=== PATIENT | male | born 1960 | race Caucasian/White ===

== ENCOUNTER 2018-07-31 10:04 | Inpatient (IN) | payer MEDICARE, OTHER ==
[2018-07-31] MEDS ORDERED: Succinylcholine Chloride 20 MG/ML 10 ml SYRINGE FS ONE (10:24)
[2018-07-31] MEDS ORDERED: Propofol 1,000 MG/100 ML VIAL IV ONE (10:24)
[2018-07-31] MEDS ORDERED: Ketamine 50 MG/ML (10ML VIAL) ONE (10:26)
[2018-07-31 10:34] LABS: Bilirubin Negative (Negative); Blood, Urine Moderate (Negative); Clarity CLOUDY (Clear); Glucose, Urine (Dipstick) 100 mg/dL (Negative); Leukocyte Negative (Negative); Nitrite Negative (Negative); Protein, Urine (Dipstick) 300 mg/dL (Neg-Trace); Specific Gravity, Urine 1.011 (1.002-1.036)
[2018-07-31 10:37] LABS: Bacteria/HPF Rare-Few HPF (None Seen); Squamous Epithelial 0-3 HPF (0-3)
[2018-07-31 10:39] LABS: Pathc Cast-AUWi Flag 5.03 (0-2.49)
[2018-07-31 10:40] LABS: ALT (SGPT) 40 U/L (8-55); AST (SGOT) 65 U/L (5-34); Alkaline Phosphatase 81 U/L (40-150); Anion Gap 20 mmol/L (10-20); BUN (Urea Nitrogen) 5 mg/dL (8.4-25.7); Calc. Creatinine Clearance 0 mL/min (70-130); Calcium 8.3 mg/dL (7.8-10.44); Carbon Dioxide 16 mmol/L (22-29); Chloride 110 mmol/L (98-107); Estimated GFR-MDRD 78; Globulin 3.3 g/dL (2.4-3.5); Glucose 149 mg/dL (70-105); Potassium 4.7 mmol/L (3.5-5.1); Protein, Total 6.3 g/dL (6.0-8.3); Sodium 141 mmol/L (136-145)
[2018-07-31 10:43] LABS: #Eosinphils 0.1 thou/uL (0.0-0.7); #Lymphocytes 1.3 thou/uL (1.20-3.40); #Monocytes 0.2 thou/uL (0.11-0.59); #Neutrophils 3.5 thou/uL (1.40-6.50); %Eosinophils 1.1 % (0.0-10.0); %Lymphocytes 24.9 % (21.0-51.0); %Monocytes 4.3 % (0.0-10.0); %Neutrophils 69.6 % (42.0-75.0); Hemoglobin 14.1 g/dL (14.0-18.0); Mean Corpuscular HGB CONC 33.2 g/dL (32.0-36.0); Mean Corpuscular Volume 99.5 fL (78.0-98.0); Mean Platelet Volume 8.3 fL (7.4-10.4); Platelet Count 76 thou/uL (130-400); Platelet Morphology Comment Appears Decreased; RBC Distribution Width 14.4 % (11.5-14.5); Red Blood Cell (RBC) Count 4.26 mill/uL (4.70-6.10)
[2018-07-31 10:47] LABS: Hyaline Casts/LPF NONE SEEN LPF (0-3 Hyaline); Other Casts/LPF None Seen LPF (0-3 Hyaline)
[2018-07-31 10:48] LABS: Sperm/HPF 4+ HPF (None Seen)
[2018-07-31 10:49] LABS: Crystals/HPF 1+ AMORPH PHOS HPF (Negative)
[2018-07-31] MEDS ORDERED: Norepinephrine 4 MG/4 ML VIAL ONE (10:50)
[2018-07-31 10:59] LABS: INR-International Normal Ratio 1.5; PTT 35.7 SEC (22.9-36.1); Prothrombin Time 18.6 SEC (12.0-14.7)
[2018-07-31] MEDS ORDERED: Atropine Sulfate 1 mg/10 ml Syringe ONE (11:00)
[2018-07-31] MEDS ORDERED: EPINEPHrine 1 MG/10 ML Abboject SYRINGE ONE (11:00)
[2018-07-31 11:04] LABS: Magnesium 1.8 mg/dL (1.6-2.6)
--- NOTE | 2018-07-31 11:04 | RAD ---
FRONTAL VIEW CHEST: COMPARISON: Earlier same day. CLINICAL HISTORY: Altered mental status. FINDINGS: There is persistent enlargement of cardiomediastinal silhouette. Elevation of right hemidiaphragm wit h adjacent right basilar density. Interval placement of endotracheal tube with tip at the inferior aspect of thoracic inlet. An adjacent traversing catheter is partially visualized, and terminates jus t below the thoracic inlet. Correlate clinically. Left IJ catheter remains. IMPRESSION: 1. Evidence of decompensated congestive heart failure with edema. Right basilar density adjacent chapito vated right hemidiaphragm is present. 2. Interval placement of endotracheal tube. There is an adjacent catheter terminating at a similar l evel, incompletely visualized on the basis of this exam. Correlate with recent tube placement, repositioning and follow-up imaging as necessary. Transcribed Date/Time: 07/31/2018 11:13 AM
--- NOTE | 2018-07-31 11:12 | RAD ---
FRONTAL VIEW CHEST: COMPARISON: No prior comparisons. INDICATION: Emergency exam, altered mental status, difficulty breathing. FINDINGS: Marked enlargement of the cardiac mediastinal silhouette. Elevation right hemidiaphragm is present. T here is a left IJ catheter with tip traversing to the SVC region. Evidence of bilateral interstitial edema. IMPRESSION: Fluid overload. Transcribed Date/Time: 07/31/2018 11:14 AM
--- NOTE | 2018-07-31 11:17 | PDOC.FPRHP ---
- History of Present Illness Chief Complaint: unresponsive s/p bee sting History of Present Illness: The patient is a 58YOM with a PMH significant for COPD and heavy EtOH and tobacco use who was flown in via EMS after reportedly becoming unresponsive following a bee sting earlier today. Per the family, the patient was reportedly stung by a bee between [id number] today. Over the course of the morning he began complaining of having more difficulty breathing and the family, remembering him having an adverse reaction to a bee sting ~30 years ago, proceeded to drive him to the nearest hospital. However, en route to a nearby hospital, the family reported that the patient became unresponsive and they immediately called EMS. Per the ERMD, the patient was found unresponsive with no pulse on the scene. Per the family ~7 minutes passed between the time of the patient's unresponsiveness and EMS's arrival. ROSC was achieved on the scene after 1 dose of Epi and the patient was then flown to the [facility] ER for further management. The patient reportedly coded again en route to [facility] and ROSC was achieved again after 1 dose of epi. The patient was also intubated en route but was noted to be significantly hypotensive in the 60/30 range on presentation and was therefore started on an epinephrine drip via a left IJ that was placed by the ERMD. He also reportedly became bradycardic into the 30s but responded to 1 dose of atropine and maintained a normal pulse since. He was subsequently transferred to the CCU for further management and close monitoring. ED Course: See HPI. - Allergies/Adverse Reactions Allergies Allergy/AdvReac Type Severity Reaction Status Date / Time Penicillins Allergy Severe Anaphylaxis Verified 07/31/18 12:28 - History PMHx: h/o TIAs following cervical spine surgery 2-3 years ago per family & COPD PSHx: cervical spine surgery FHx: Breast CA- mom & sisters Social: No drug use but reportedly drinks at least a 12 pack per day for 26+ years and has smoked 1ppd x 50 years. - Review of Systems ROS unobtainable: due to endotracheal tube - Vital signs BP: [129/89] HR: [89] RR: [83] Tmax: [98.1] Pox: [93]% on [Ventilator] Wt: 105 kg - Physical Exam Constitutional: other (intubated & sedated with periodic spontaneous movements) HEENT: normocephalic and atraumatic, other (pupils fixed & dilated) Heart: RRR, normal S1/S2 Lungs: good air movement, no wheezing, no retractions, other (coarse rhonchi on inspiration and expiration noted throughout) Abdomen: soft, no masses/distention Musculoskeletal: normal structure -Neurological: pupils fixed & dilated & unable to assess for focal deficits or 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 -Skin: open, non-infected appearing ulceration to LLE with chornic venous stasis changes in B/L LEs & trace pitting edema in ankles Heme/Lymphatic: no purpura, no petechia FMR H&P: Results - Labs Result Diagrams: 07/31/18 10:09 07/31/18 10:09 Lab results: WBC 5.0 thou/uL (4.8-10.8) 07/31/18 10:09 Hgb 14.1 g/dL (14.0-18.0) 07/31/18 10:09 Hct 42.3 % (42.0-52.0) 07/31/18 10:09 MCV 99.5 fL (78.0-98.0) H 07/31/18 10:09 Plt Count 76 thou/uL (130-400) L 07/31/18 10:09 Neutrophils % 69.6 % (42.0-75.0) 07/31/18 10:09 Sodium 141 mmol/L (136-145) 07/31/18 10:09 Potassium 4.7 mmol/L (3.5-5.1) 07/31/18 10:09 Chloride 110 mmol/L (98-107) H 07/31/18 10:09 Carbon Dioxide 16 mmol/L (22-29) L 07/31/18 10:09 BUN 5 mg/dL (8.4-25.7) L 07/31/18 10:09 Creatinine 0.99 mg/dL (0.7-1.3) 07/31/18 10:09 Glucose 149 mg/dL (70-105) H 07/31/18 10:09 Calcium 8.3 mg/dL (7.8-10.44) 07/31/18 10:09 Total Bilirubin 1.0 mg/dL (0.2-1.2) 07/31/18 10:09 AST 65 U/L (5-34) H 07/31/18 10:09 ALT 40 U/L (8-55) 07/31/18 10:09 Alkaline Phosphatase 81 U/L (40-150) 07/31/18 10:09 Creatine Kinase 166 U/L (30-200) 07/31/18 10:09 Serum Total Protein 6.3 g/dL (6.0-8.3) 07/31/18 10:09 Albumin 3.0 g/dL (3.5-5.0) L 07/31/18 10:09 Urine Ketones Negative mg/dL (Negative) 07/31/18 10:14 Urine Blood Moderate (Negative) H 07/31/18 10:14 Urine Nitrite Negative (Negative) 07/31/18 10:14 Ur Leukocyte Esterase Negative (Negative) 07/31/18 10:14 Urine RBC 7-10 HPF (0-3) H 07/31/18 10:14 Urine WBC 7-10 HPF (0-3) H 07/31/18 10:14 Ur Squamous Epith Cells 0-3 HPF (0-3) 07/31/18 10:14 Urine Bacteria Rare-Few HPF (None Seen) 07/31/18 10:14 - EKG Interpretation EKG: NSR - Radiology Interpretation Chest x-ray Status: image reviewed by me, report reviewed by me (07/31/18: Fluid Overload. Evidence of decompensated CHF w/ edema. R. basilar density adjacent elevated R. 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 Became extremely hypotensive and therefore had a left IJ placed and was receiving pressure support via an epi drip @ 30mcg/min in the ED on exam. Was also sedated with propofol. - Will continue epi drip for pressure support & wean as tolerated by the patient & pulm/CC recs. - Will avoid IVFs for now due to concern for fluid overload seen on CXR. Will order a BNP and TTE to evaluate for any underlying CHF. - Will start on IV steroids & H1 and H2 blockers for adjunct therapy. - Will continue ventilatory support per pulm/CC recs; however, prognosis remains guarded due to concerning neuro findings on exam including fixed pupils. CT head also pending to r/o any acute IC abnormality which could also explain these findings. - Will continue to monitor vitals closely. Acute hypoxic hypercapnic respiratory failure 2/2 flash pulmonary edema from anaphylactic shock - Patient intubated and sedated on exam. Satting 91% on 100% O2 on SIMV mode set at a RR of 14. - ABG s/p intubation in ER significant for severe respiratory acidosis with a pH of 7.15 and a PCO2 of 62. CXR also noted edema & an elevated R hemidiaphragm - Will continue ventilatory support and management per pulm/CC recs who were consulted from the ED. Appreciate recs. Lactic acidosis 2/2 anaphylactic shock - Lactate 6.1 on presentation likely 2/2 severe hypotension in setting of anaphylactic shock. - Will continue to trend. COPD - Reported by family. - Will have albuterol PRN ordered for wheezing and SOB. h/o TIAs/CVA - Reported h/o multiple TIAs/ministrokes per family following an operation 2-3 years ago. - May need to call pharmacy to reconcile medications if list unable to be found from ER paperwork. Will resume meds once confirmed. chronic venous stasis w/ LLE ulceration - Aware, WC consulted to evaluate & treat. tobacco use - Aware. EtOH use - Aware. Dispo: Will admit to CCU for close monitoring with ventilatory and pressure support PRN. Estimated LOS > 2 midnights pending clinical course. Prognosis remains guarded. DVT PPx: lovenox GI PPx: famotidine IVFs: SL Abx: none CODE STATUS: FULL CODE FMR H&P: Upper Level - Pertinent history I was present with the manager of international during the history taking. We were not able to obtain history from patient due to intubation. We obtained hx from pts girlfriend and sister. They were with the patient when he was stung by a bee. They knew he has had allergic reaction before. They then called EMS. They state he was down for about 7 minutes before EMS arrived. EMS performed CPR gave 4 EPI BICARB. Pt arrested multiple times in route per them. - Pertinent findings I was present with the manager of international during the physical exam. We agreed on findings we both found. Significant pt had decorticate posturing. Pt was gaging on the ET tube. Pt pupils were fixed and mildly dilated. Pt extremeties were cool to the touch. - Plan Date/Time: 07/31/18 1115 I, [Barry Louis MD PGY-2], have evaluated this patient and agree with findings/plan as outlined by manager of international resident. Pertinent changes/ additions are listed here. Anaphylactic Shock -Pt is intubated and sedated. Pt appears to have gone into cardiac arrest follow decreased perfusion likely from anaphylaxis. -Pt on propofol for sedation. Pt on epinephrine drip for BP control. -CT head pending -07/31 Cxray- shows sign of fluid overload. Pt intubated at this time. Will get ECHO and BNP. -Will give benadryl and methylprednisolone -Pt showing signs of anoxic brain injury. Will continue to monitor. Pupils fixed and dilated. Hx of CVA -Will restart home meds, await recs. -CT head pending. Will likely also want to get ER. Chronic venostasis -Pt has signs of chronic venostasis and has open wound on the left leg. -consult Wound care Tobacco Abuse Addendum - Attending - Attending Attestation Date/Time: 07/31/18 1236 I personally evaluated the patient and discussed the management with Dr. Jarvis/ Heriberto. I agree with the History, Examination, Assessment and Plan documented above with any addition or exceptions noted below. Patient is 58 yo M with PMHx of COPD and alcohol/tobacco abuse per family and remote history of allergic reaction to bee sting presenting after outside of hospital cardiac arrest after hymenoptera sting. Per family, patient was stung this morning and became short of breath, weak, and confused very quickly. They immediately began to transport by private vehicle to hospital when he became unresponsive. EMS contact who per family arrived within 7 minutes. CPR began and air transport initiated to this institution. Upon arrival, patient was in ROSC after cardiac arrest, x2 apparently. He is currently on IV fluid bolus, ventilator, and Epinephrine drip. Exam shows obese male with ET tube in place, nonresponsive but on sedation. He is taking some spontaneous breaths. Lungs show diffuse wheezes. HR with RRR. Pulses intact. Abdomen nondistended. Extremities with chronic venous stasis changes and mild ulceration as well as skin tears. Minimal pitting edema. Labs are not overtly out of the ordinary. He has elevated lactic acid, normal troponin currently, biggest abnormality is with his current ABG showing hypoxia and acidemia with base deficit. XR shows ET tube and CVC in place with lung findings of volume overload and R hemidiaphragm elevation. Patient will be admitted for 1. ROSC s/p cardiac arrest from presumed anaphylactic shock: continue IV epinephrine drip to maintain pressures and good air movement. Patient will be given Solumedrol and Famotidine. Pulm/CC on board. Continue ventilator mgmt per their recs. 2. Anaphylactic shock 2/2 hymenoptera envenomation- epi, steroids as above. 3. Suspected flash pulmonary edema 2/2 cardiac arrest- vent support. Anticipate holding diuresis as this is likely a componsent of capillary leak from his anaphylaxis. Continue IV fluid hydration and will begin diuresis once his cardiovascular status is more stable unless critical care suggests otherwise. Prognosis critical and guarded. Code status confirmed with the family (son) in the room.
[2018-07-31 11:26] LABS: Actual Bicarbonate (HCO3a) 21.1 mEq/L (22-28); Analyzer IN Cardio ER; Base Excess (BEa) -8.8 mEq/L (-2.0 to +3.0); Calcium, Ionized 1.08 mmol/L (1.12-1.30); Carboxyhemoglobin (COHb) 2.4 gm% (0.0-3.0); Hemoglobin (Hb) 15.7 g/dL (14.0-18.0); O2 Tension (PaO2) 76.9 mmHg (80.0-100.0); Potassium - ABG Lab 4.91 mmol/L (3.70-5.30)
[2018-07-31 11:29] LABS: pH, Arterial 7.15 (7.35-7.45)
[2018-07-31 11:30] LABS: Puncture Site LR
[2018-07-31] MEDS ORDERED: Albuterol Sulfate 2.5 mg/3 ml Neb NEB PRN (12:16)
[2018-07-31] MEDS ORDERED: Ventilator Sedation Protocol 1 EACH FS ONE (12:16)
[2018-07-31] MEDS ORDERED: Ondansetron PF 4 MG/2 ML Vial IVP PRN (12:16)
[2018-07-31] MEDS ORDERED: CCU Electrolyte Replacement 1 EACH FS ONE (12:16)
[2018-07-31] MEDS ORDERED: diphenhydrAMINE 50 MG/ML VIAL IVP ONE (12:16)
[2018-07-31] MEDS ORDERED: Acetaminophen 650 MG Suppository PR PRN (12:16)
[2018-07-31] MEDS ORDERED: Sodium Chloride 0.9% 1,000 ML IV SCH (12:16)
[2018-07-31] MEDS ORDERED: Fentanyl BOLUS 250 ML IVPB PRN (12:20)
[2018-07-31] MEDS ORDERED: fentaNYL Citrate/PF 2,000 MCG in Sodium Chloride 0.9% 60 ML IV SCH (12:20)
[2018-07-31] MEDS ORDERED: Magnesium Oxide 400 MG TAB PO PRN ×2 (12:20)
[2018-07-31] MEDS ORDERED: Propofol BOLUS 1,000 MG/100 ML VIAL IV PRN (12:20)
[2018-07-31] MEDS ORDERED: Potassium Chloride 40 MEQ in Sodium Chloride 0.9% 250 ML 250 ML IVPB PRN (12:20)
[2018-07-31] MEDS ORDERED: Potassium Chloride 20 MEQ TAB PO PRN (12:20)
[2018-07-31] MEDS ORDERED: Morphine 2 MG/ML SYRINGE SLOW IVP PRN (12:20)
[2018-07-31] MEDS ORDERED: DISCONTINUE PREVIOUS NARCOTIC PAIN MEDICATIONS AND BENZODIAZEPINES FS SCH (12:20)
[2018-07-31] MEDS ORDERED: Potassium Phosphate 15 MMOL in Sodium Chloride 0.9% 250 ML 250 ML IV PRN (12:20)
[2018-07-31] MEDS ORDERED: Potassium Phosphate 12 MMOL in Sodium Chloride 0.9% 250 ML 250 ML IV PRN (12:20)
[2018-07-31] MEDS ORDERED: CCU ELECTROLYTE REPLACEMENT PROTOCOL FS PRN (12:20)
[2018-07-31] MEDS ORDERED: Potassium Chloride 40 MEQ in Premix Bag 1 BAG IVPB PRN (12:20)
[2018-07-31] MEDS ORDERED: PHOS-NAK 1 PKT PACK PO PRN ×2 (12:20)
[2018-07-31] MEDS ORDERED: Magnesium 2 GM/50 ML 2 GM in Premix Bag 1 BAG IVPB PRN (12:20)
[2018-07-31] MEDS ORDERED: methylPREDNISolone Sod Succ/PF 125 MG/2 ML VIAL IVP SCH (12:30)
--- NOTE | 2018-07-31 12:43 | RAD ---
Exam: Chest one view HISTORY:Sepsis. Comparison: 07/31/2018 FINDINGS: Redemonstration of endotracheal tube. Stable right-sided vascular catheter. Persistently diminished l heidy volumes. Stable cardiac silhouette. No pneumothorax. IMPRESSION: 1. No significant interval change. Stable lines and tubes. 2. Persistently decreased lung volume. Persistent opacification in the right lung base. Component of atelectasis is favored given elevation right hemidiaphragm. Other etiologies cannot be excluded.
--- NOTE | 2018-07-31 12:53 | CT ---
Exam: Head CT without contrast HISTORY: Altered mental status. Status post multiple bee stings. Cyanotic. Apneic. Pulseless. COMPARISON: none FINDINGS: Hemorrhage: No intraparenchymal hemorrhage or extra-axial hematoma. Brain parenchyma: Cortical dior-white matter differentiation is preserved. No mass effect or midline shift. Basilar cisterns are patent. Ventricular system: Ventricles and sulci are patent and symmetric. Calvarium: Intact. Sinuses and mastoid air cells: Mucosal thickening of the paranasal sinuses. Adequate mastoid air cell aeration. IMPRESSION: No acute intracranial process.
[2018-07-31 13:20] LABS: Actual Bicarbonate (HCO3a) 21.4 mEq/L (22-28); Base Excess (BEa) -7.9 mEq/L (-2.0 to +3.0); CO2 Tension 59.5 mmHg (35.0-45.0); Hemoglobin (Hb) 14.8 g/dL (14.0-18.0); O2 Tension (PaO2) 73.2 mmHg (80.0-100.0); Potassium - ABG Lab 4.46 mmol/L (3.70-5.30)
[2018-07-31 13:21] LABS: pH, Arterial 7.17 (7.35-7.45)
[2018-07-31 13:22] LABS: ALV-art Gradient 565.425 (0-20)
[2018-07-31] MEDS ORDERED: Sodium Bicarb 50 MEQ/50 ML VIAL ONE ×2 (13:24→13:30)
[2018-07-31] MEDS ORDERED: Sodium Bicarb 50 MEQ/50 ML VIAL IVP SCH (13:30)
[2018-07-31] MEDS: Lorazepam 2 MG/ML VIAL SLOW IVP PRN ×2 (13:32→20:31)
[2018-07-31] MEDS ORDERED: Norepinephrine 8 MG/0.9% NS 250 ML IVPB SCH (13:45)
[2018-07-31] MEDS ORDERED: Acetaminophen 1,000 MG in Premix Bag 1 BAG IVPB PRN (13:45)
[2018-07-31] MEDS ORDERED: DO NOT USE PRE-EXISTING LYTE PROTOCOL FS SCH (13:45)
[2018-07-31] MEDS ORDERED: Nitroglycerin 50 MG/250 ML BOT 250 ML IVPB SCH (13:45)
[2018-07-31] MEDS ORDERED: ALL FLUIDS SHOULD BE DEXTROSE FREE IF POSSIBLE FS SCH (13:45)
[2018-07-31 13:56] LABS: Lactic Acid 3.6 mmol/L (0.5-2.2)
--- NOTE | 2018-07-31 14:26 | CON ---
DATE OF CONSULTATION: HISTORY OF PRESENT ILLNESS: Soren Roy is a 58-year-old morbidly obese gentleman, who is from the [facility], recently moved, apparently history is as obtained from his son and his girlfriend. He wakes up at nighttime, goes to the bathroom several times. This morning, he woke up to go outside to smoke. He came back, he had a sting. His states she pulled out a stinger. He then went back to sleep. There was a single bee sting. Son states that he had some reaction to bee stings 20 or 30 years ago. After he went back to sleep, when she went to check him, she noticed that he was having some agonal respiration. EMS arrived, where they were called in. They performed CPR. Airway protective was placed in. He was given 4 amps of bicarb, on Life[employer] over here. The patient apparently arrested multiple times. He was in PEA. Upon arrival to the [facility], he was intubated by the ER physician. Given additional epinephrine, epinephrine drip was initiated. CPR in progress. His family members tell me that the patient's past medical history is pertinent mainly for stroke, COPD, some unknown cardiac issues, pertinent he had some kind of cervical surgery done which was complicated by infection that caused marked weakness and use of a walker. The family is going to bring the list of his medicines. He is smoking for most of his life. PAST SURGICAL HISTORY: As noted, cervical surgery. He has a wound in his leg; according to family members, that was thought to have Staph, he was to have an ultrasound done of his leg. PAST MEDICAL HISTORY: Otherwise, past medical history is pertinent for stroke, arthritis, COPD, probably sleep apnea, chronic stasis. MEDICATIONS: He did have a list of medicines, is yet family to bring some. REVIEW OF SYSTEMS: Otherwise, unobtainable in the ER. He was doing posturing. PHYSICAL EXAMINATION: VITAL SIGNS: Saturations were 100%, pulse 104, respirations were 34, blood pressure 130/80, he is on epinephrine drip. CHEST: Decreased breath sounds. No wheezing. CARDIAC: Normal S1 and S2. No gallops. ABDOMEN: Massive. EXTREMITIES: 2+ edema. Chronic stasis changes. Open wound, but does not appear to be infected. LABORATORY DATA: PO2 is 676, pCO2 is 62, pH 7.15 on a rate of 14, 100%, PEEP of 5 creatinine normal. Electrolytes unremarkable. Lactic acid 6. Albumin is 3. White count is 5000, with a platelet count of 76. IMPRESSION: 1. Status post respiratory failure with PEA, requiring CPR, epinephrine. 2. Shock. 3. Morbid obesity. 4. Previous neck surgery complicated by superficial staph infection. 5. Thrombocytopenia. 6. Status post cardiopulmonary arrest, PEA, etiology unclear, rule out cardiac etiology. 7. Single bee sting injury without any obvious angioedema. 8. Arthritis. 9. Hypertension. 10. Chronic obstructive pulmonary disease. 11. History of previous CVA. Continue epinephrine drip. Continue steroids, supportive care. We will try to get information from his family. I am concerned about his anoxic injury. We will reassess the situation in the next 24 to 48 hours. Get neurological input. Initial CT of the brain did not show any acute changes. Prognosis remains guarded. This is a 45-minute critical time. Continue supportive care, pressors, steroids, and empiric antibiotics. Echocardiogram. Job ID: [id number]
[2018-07-31] MEDS: Vecuronium 10 MG VIAL IV PRN ×5 (14:57→23:13)
[2018-07-31] MEDS ORDERED: Norepinephrine 8 MG in Dextrose 5% in Water 242 ML IVPB PRN (15:55)
[2018-07-31] MEDS: Lactated Ringer's 1,000 ML IV SCH ×2 (16:21→23:06)
[2018-07-31] MEDS: methylPREDNISolone Sod Succ 40 MG VIAL IVP SCH ×2 (18:16→23:06)
[2018-07-31] MEDS: Propofol 1,000 MG/100 ML VIAL IV PRN ×2 (19:00→23:06)
[2018-07-31 20:12] LABS: #Lymphocytes 0.6 thou/uL (1.20-3.40); #Monocytes 0.2 thou/uL (0.11-0.59); #Neutrophils 3.9 thou/uL (1.40-6.50); %Basophils 0.3 % (0.0-1.0); %Eosinophils 0.4 % (0.0-10.0); %Lymphocytes 13.2 % (21.0-51.0); %Neutrophils 82.1 % (42.0-75.0); Hemoglobin 13.8 g/dL (14.0-18.0); Mean Corpuscular HGB CONC 34.2 g/dL (32.0-36.0); Mean Corpuscular Hemoglobin 33.4 pg (27.0-31.0); Mean Corpuscular Volume 97.9 fL (78.0-98.0); Mean Platelet Volume 8.7 fL (7.4-10.4); Platelet Count 56 thou/uL (130-400); RBC Distribution Width 14.1 % (11.5-14.5); Red Blood Cell (RBC) Count 4.12 mill/uL (4.70-6.10); White Blood Cell (WBC) Count 4.8 thou/uL (4.8-10.8)
[2018-07-31 20:13] LABS: INR-International Normal Ratio 1.4; PTT 32.2 SEC (22.9-36.1); Prothrombin Time 16.9 SEC (12.0-14.7)
[2018-07-31 20:25] LABS: Anion Gap 14 mmol/L (10-20); BUN (Urea Nitrogen) 12 mg/dL (8.4-25.7); Calc. Creatinine Clearance 205 mL/min (70-130); Calcium 8.1 mg/dL (7.8-10.44); Carbon Dioxide 23 mmol/L (22-29); Chloride 108 mmol/L (98-107); Estimated GFR-MDRD Greater than 90; Glucose 188 mg/dL (70-105); Magnesium 1.4 mg/dL (1.6-2.6); Phosphorus 3.5 mg/dL (2.3-4.7); Potassium 3.5 mmol/L (3.5-5.1); Sodium 141 mmol/L (136-145)
[2018-07-31] MEDS: Famotidine/PF 20 mg/2ml Vial SLOW IVP SCH (20:37)
[2018-07-31] MEDS ORDERED: Bacteriostatic Normal Saline 30 ML VIAL ONE (20:46)
[2018-07-31 20:52] LABS: CKMB 9.7 ng/mL (0-6.6)
[2018-07-31] MEDS: diphenhydrAMINE 50 MG/ML VIAL IVP SCH (21:21)
[2018-08-01] MEDS: Vecuronium 10 MG VIAL IV PRN ×5 (01:33→12:16)
[2018-08-01 03:24] LABS: #Basophils 0.1 thou/uL (0.0-0.2); #Monocytes 0.3 thou/uL (0.11-0.59); #Neutrophils 4.9 thou/uL (1.40-6.50); %Eosinophils 0.3 % (0.0-10.0); %Lymphocytes 15.4 % (21.0-51.0); %Monocytes 4.4 % (0.0-10.0); %Neutrophils 78.9 % (42.0-75.0); Hemoglobin 14.8 g/dL (14.0-18.0); Mean Corpuscular HGB CONC 34.4 g/dL (32.0-36.0); Mean Corpuscular Hemoglobin 33.4 pg (27.0-31.0); Mean Corpuscular Volume 96.9 fL (78.0-98.0); Mean Platelet Volume 9.2 fL (7.4-10.4); Platelet Count 56 thou/uL (130-400); RBC Distribution Width 13.8 % (11.5-14.5); Red Blood Cell (RBC) Count 4.42 mill/uL (4.70-6.10); White Blood Cell (WBC) Count 6.3 thou/uL (4.8-10.8)
[2018-08-01 03:29] LABS: INR-International Normal Ratio 1.2; Prothrombin Time 15.5 SEC (12.0-14.7)
[2018-08-01 03:30] LABS: PTT 32.1 SEC (22.9-36.1)
[2018-08-01 03:40] LABS: Anion Gap 12 mmol/L (10-20); BUN (Urea Nitrogen) 12 mg/dL (8.4-25.7); Calc. Creatinine Clearance 222 mL/min (70-130); Calcium 8.5 mg/dL (7.8-10.44); Carbon Dioxide 24 mmol/L (22-29); Chloride 104 mmol/L (98-107); Estimated GFR-MDRD Greater than 90; Glucose 204 mg/dL (70-105); Magnesium 1.5 mg/dL (1.6-2.6); Phosphorus 1.6 mg/dL (2.3-4.7); Sodium 137 mmol/L (136-145)
[2018-08-01 04:03] LABS: CKMB 7.6 ng/mL (0-6.6); Critical Call CKMB RESULT DECREASING
[2018-08-01] MEDS ORDERED: Bacteriostatic Normal Saline 30 ML VIAL ONE ×2 (04:28→19:52)
[2018-08-01 05:15] LABS: Lactic Acid 3.5 mmol/L (0.5-2.2)
[2018-08-01 05:22] LABS: #Lymphocytes 0.7 thou/uL (1.20-3.40); #Monocytes 0.3 thou/uL (0.11-0.59); #Neutrophils 5.3 thou/uL (1.40-6.50); %Basophils 0.2 % (0.0-1.0); %Eosinophils 0.1 % (0.0-10.0); %Lymphocytes 11.3 % (21.0-51.0); %Monocytes 4.5 % (0.0-10.0); %Neutrophils 83.9 % (42.0-75.0); Hemoglobin 14.1 g/dL (14.0-18.0); Mean Corpuscular HGB CONC 34.7 g/dL (32.0-36.0); Mean Corpuscular Hemoglobin 33.6 pg (27.0-31.0); Mean Corpuscular Volume 96.9 fL (78.0-98.0); Mean Platelet Volume 9.4 fL (7.4-10.4); Platelet Count 55 thou/uL (130-400); Red Blood Cell (RBC) Count 4.21 mill/uL (4.70-6.10); White Blood Cell (WBC) Count 6.3 thou/uL (4.8-10.8)
[2018-08-01 05:23] LABS: ALT (SGPT) 45 U/L (8-55); AST (SGOT) 61 U/L (5-34); Albumin 3.1 g/dL (3.5-5.0); Alkaline Phosphatase 74 U/L (40-150); Anion Gap 13 mmol/L (10-20); BUN (Urea Nitrogen) 11 mg/dL (8.4-25.7); Bilirubin, Total 1.6 mg/dL (0.2-1.2); Calc. Creatinine Clearance 238 mL/min (70-130); Calcium 8.4 mg/dL (7.8-10.44); Carbon Dioxide 22 mmol/L (22-29); Chloride 104 mmol/L (98-107); Estimated GFR-MDRD Greater than 90; Globulin 3.7 g/dL (2.4-3.5); Glucose 198 mg/dL (70-105); Potassium 3.3 mmol/L (3.5-5.1); Protein, Total 6.8 g/dL (6.0-8.3); Sodium 136 mmol/L (136-145)
[2018-08-01] MEDS: Potassium Phosphate 9 MMOL in Sodium Chloride 0.9% 100 ML IVPB PRN ×2 (05:49→16:43)
[2018-08-01] MEDS: diphenhydrAMINE 50 MG/ML VIAL IVP SCH ×3 (05:49→21:30)
[2018-08-01] MEDS: methylPREDNISolone Sod Succ 40 MG VIAL IVP SCH ×3 (05:49→17:38)
--- NOTE | 2018-08-01 06:13 | PDOC.FM ---
- Objective Vital Signs & Weight: Vital Signs (12 hours) Pulse Resp Pulse Ox 08/01/18 04:00 24 H 08/01/18 02:32 92 08/01/18 02:00 24 H 08/01/18 00:00 24 H 07/31/18 23:41 96 24 H 100 07/31/18 22:03 92 07/31/18 22:00 24 H 07/31/18 20:00 24 H 100 07/31/18 18:20 90 07/31/18 18:17 89 24 H 100 Weight Weight 142 kg Most Recent Monitor Data Heart Rate from ECG 88 NIBP 149/91 NIBP BP-Mean 110 Respiration from ECG 13 SpO2 99 I&O: 07/30/18 07/31/18 08/01/18 06:59 06:59 06:59 Intake Total 2379 Output Total 2492 Balance -113 Result Diagrams: 08/01/18 13:46 08/01/18 13:46 Dx/Plan (1) Cardiac arrest Code(s): I46.9 - CARDIAC ARREST, CAUSE UNSPECIFIED Status: Acute (2) COPD (chronic obstructive pulmonary disease) Status: Acute (3) Alcohol abuse Code(s): F10.10 - ALCOHOL ABUSE, UNCOMPLICATED Status: Acute (4) Anaphylactic shock Code(s): T78.2XXA - ANAPHYLACTIC SHOCK, UNSPECIFIED, INITIAL ENCOUNTER Status : Acute (5) History of stroke Code(s): Z86.73 - PRSNL HX OF TIA (TIA), AND CEREB INFRC W/O RESID DEFICITS Status: Acute (6) Tobacco abuse Code(s): Z72.0 - TOBACCO USE Status: Acute - Plan Plan: HPI: This AM patient remains intubated, cooling protocol. Overnight needed vecuronium 2/2 movement and shivering. Blood pressure trending upwards. U/O >1ml /kg/hr. Developed blood from NG tube this AM around 0600. PHYSICAL EXAMINATION: General: sedated HEENT: pupils reactive to light Heart/Cardiovascular System: RRR, Cap refill < 3 seconds, no rub, no murmur Lungs/Respiratory System: intubated, good air movement, crackles throughout Abdomen/Gastro-Intestinal System: no abdominal tenderness, normal bowel sounds, no masses, no organomegaly, bright red blood from NG tube Extremities: cool extremities. 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 2/2 arrest x2) - Sedation: propofol - suspect PEA >7 min, ROSC x2 - Neurology consulted, appreciate recs Resp (flash pulm edema 2/2 arrest, COPD, heavy tobacco abuse) - ABG: pending - Vent settings: PC, rate 24, FiO2 70 - 50+ pack-year tobacco abuse CV (anaphylactic shock 2/2 bee sting- resolved, hx of cardiac surgery, ROSC x2) - Pressors: none - Solumedrol, famotidine, benadryl - EF 50-55%, BNP 38 - trop 9.7-> 7.6 - cooling protocol - LA 9.7-> 7.6 GI (ETOH abuse, UGIB, consider ETOH withdrawal) - 12 pack of beer per day - On pantoprazole - Will monitor and consider GI consult, unlikely a candidate for scope at this time - will discuss benzo with attending /Renal () - U/O: >1 ml/kg/hr Infection () Endo () Lines/Tubes: Intubated, R IJ CVC Code status: full PPx: famotidine Dispo: guarded Addendum - Attending - Attending Attestation Date/Time: 08/01/18 7741 I personally evaluated the patient and discussed the management with Dr. Looney I agree with the History, Examination, Assessment and Plan documented above with any addition or exceptions noted below. Significant anoxic brain injury s/p ROSC x 2 currently in hypothermic coolong protocol. Patient requiring minimal sedation. Family being kept informed through frequent calls to Nursing staff . Post rounds made aware significant polyuria concern for Diabetes Insipidus from LIFT OPERATOR injury Dr Looney made aware of additional finding. Appreciate recommendations from Pulmonary Critical Care.
[2018-08-01] MEDS: Lactated Ringer's 1,000 ML IV SCH ×3 (06:38→16:46)
[2018-08-01 07:08] LABS: Actual Bicarbonate (HCO3a) 21.9 mEq/L (22-28); Base Excess (BEa) -2.2 mEq/L (-2.0 to +3.0); Calcium, Ionized 1.09 mmol/L (1.12-1.30); Carboxyhemoglobin (COHb) 1.1 gm% (0.0-3.0); Hemoglobin (Hb) 15.4 g/dL (14.0-18.0); O2 Tension (PaO2) 91.2 mmHg (80.0-100.0); Potassium - ABG Lab 3.18 mmol/L (3.70-5.30)
[2018-08-01 07:12] LABS: Puncture Site RBA
--- NOTE | 2018-08-01 08:20 | PRG ---
DATE OF SERVICE: 08/01/2018 SUBJECTIVE: Soren Roy remains intubated in the vent. He is sedated and paralyzed. OBJECTIVE: VITAL SIGNS: Blood pressure 176/100, pulse 78, respiratory rate is set at 24, sats are . His Is and Os have been 2395 in, 3392. HEENT: Pupils are equal and reactive. CHEST: Decreased breath sounds. No wheezing. CARDIAC: Normal S1 and S2. No gallops. ABDOMEN: No masses. LABORATORY DATA: White count is 6000, H and H are 14 and 40, platelet count is low at 55. PO2 is 91, pCO2 of 36.40, rate of 24, 70%, on a bilevel low PEEP of 10. Peak pressures are 30. Lytes are normal. His CK is elevated. Troponin is 0.04. IMAGING STUDIES: Echocardiogram done yesterday shows evidence of normal EF. Chest x-ray shows cardiomegaly with some right lower lung atelectatic changes. IMPRESSION: 1. Status post respiratory failure, pulseless electrical activity. Etiology unclear at this stage. 2. History of wasp, bee sting allergy. 3. Probable sleep apnea. 4. History of depression. 5. Chronic pain. PLAN: He is on the hypothermia protocol, which will be discontinued this afternoon. Controlled blood pressure with medication as outlined. Input from Neurology. EEG a.m. Nutrition in the next 24 hours. Prognosis is grave, unclear why is thrombocytopenia. Discussed with , once again this maybe a chronic problem. One-half hour of critical time. Job ID: [id number]
[2018-08-01] MEDS: Propofol 1,000 MG/100 ML VIAL IV PRN ×4 (08:23→21:29)
[2018-08-01] MEDS: Famotidine/PF 20 mg/2ml Vial SLOW IVP SCH ×2 (08:23→19:59)
--- NOTE | 2018-08-01 08:23 | PDOC.EVN ---
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
[2018-08-01] MEDS: Enoxaparin Sodium 40 MG/0.4 ML SYRINGE SC SCH (08:24)
[2018-08-01] MEDS ORDERED: hydrALAZINE 20 MG/ML VIAL SLOW IVP PRN (08:28)
[2018-08-01 08:34] LABS: #Monocytes 0.3 thou/uL (0.11-0.59); #Neutrophils 5.8 thou/uL (1.40-6.50); %Basophils 0.2 % (0.0-1.0); %Eosinophils 0.2 % (0.0-10.0); %Lymphocytes 13.7 % (21.0-51.0); %Monocytes 4.4 % (0.0-10.0); %Neutrophils 81.6 % (42.0-75.0); Hemoglobin 15.1 g/dL (14.0-18.0); Mean Corpuscular HGB CONC 35.2 g/dL (32.0-36.0); Mean Corpuscular Hemoglobin 33.7 pg (27.0-31.0); Mean Corpuscular Volume 95.7 fL (78.0-98.0); Mean Platelet Volume 8.7 fL (7.4-10.4); Platelet Count 56 thou/uL (130-400); RBC Distribution Width 13.7 % (11.5-14.5); Red Blood Cell (RBC) Count 4.47 mill/uL (4.70-6.10); White Blood Cell (WBC) Count 7.1 thou/uL (4.8-10.8)
[2018-08-01] MEDS ORDERED: methylPREDNISolone Sod Succ/PF 125 MG/2 ML VIAL IVP SCH (09:00)
[2018-08-01 09:08] LABS: Anion Gap 14 mmol/L (10-20); BUN (Urea Nitrogen) 10 mg/dL (8.4-25.7); Calc. Creatinine Clearance 238 mL/min (70-130); Calcium 8.8 mg/dL (7.8-10.44); Carbon Dioxide 23 mmol/L (22-29); Chloride 105 mmol/L (98-107); Estimated GFR-MDRD Greater than 90; Glucose 216 mg/dL (70-105); Magnesium 1.5 mg/dL (1.6-2.6); Phosphorus 2.3 mg/dL (2.3-4.7); Potassium 3.3 mmol/L (3.5-5.1); Sodium 139 mmol/L (136-145)
--- NOTE | 2018-08-01 09:10 | RAD ---
CHEST 1 VIEW: INDICATION: Followup exam. COMPARISON: Prior exam dated 07/31/2018. FINDINGS: There is stable placement of the ET tube. There is cardiomegaly with pulmonary vascular congestion. There is suggested elevation of the right hemidiaphragm and right basilar airspace opacity. No pneu mothorax is evident. There is a left IJ central venous catheter. IMPRESSION: 1. Cardiomegaly with pulmonary vascular congestion is stable. 2. Stable elevation of the right hemidiaphragm and right bibasilar airspace opacity possibly reflect ing atelectasis and/or pneumonia. POS: BH
--- NOTE | 2018-08-01 09:17 | PDOC.FPROB ---
FMR OB H&P: Medications - Current Home Medications: Medication Instructions Recorded Confirmed Type Albuterol Sulfate [Ventolin HFA] 2 puff INH Q6HR PRN 07/31/18 07/31/18 History Apixaban [Eliquis] 5 mg PO BID 07/31/18 07/31/18 History DULoxetine [Cymbalta] 60 mg PO DAILY 07/31/18 07/31/18 History Fluticasone/Vilanterol [Breo 1 inh IH DAILY 07/31/18 07/31/18 History Ellipta] Folic Acid 0.4 mg PO DAILY 07/31/18 07/31/18 History HYDROcodone/Acetaminophen 1 tab PO QID PRN 07/31/18 07/31/18 History [Hydrocodone-Acetamin 10-325 mg] Levofloxacin 500 mg PO DAILY 07/31/18 07/31/18 History Linaclotide [Linzess] 145 mcg PO DAILY-AC 07/31/18 07/31/18 History Milk Thistle 1,000 mg PO DAILY 07/31/18 07/31/18 History Nortriptyline HCl 50 mg PO HS 07/31/18 07/31/18 History Omeprazole 40 mg PO DAILY 07/31/18 07/31/18 History Propranolol [Inderal] 40 mg PO BID 07/31/18 07/31/18 History Rosuvastatin [Crestor] 40 mg PO DAILY 07/31/18 07/31/18 History Vitamin B Complex [B Complex] 2 mg PO DAILY 07/31/18 07/31/18 History Zolpidem Tartrate 10 mg PO HS 07/31/18 07/31/18 History traMADol HCl [Tramadol HCl] 50 mg PO TID PRN 07/31/18 07/31/18 History Allergies/Adverse Reactions: Allergies Allergy/AdvReac Type Severity Reaction Status Date / Time Penicillins Allergy Severe Anaphylaxis Verified 07/31/18 12:28 FMR OB H&P: Vital Signs - Maternal Vital signs: Vital Signs - First Documented Temp Pulse Resp BP Pulse Ox 99.5 F 96 38 H 96/58 L 97 07/31/18 12:50 07/31/18 12:50 07/31/18 12:50 07/31/18 12:50 07/31/18 12:50 FMR OB H&P: Results - Labs Lab results: Laboratory Results - last 24 hr 07/31/18 07/31/18 07/31/18 10:09 10:09 10:09 WBC 5.0 RBC 4.26 L Hgb 14.1 Hct 42.3 MCV 99.5 H MCH 33.0 H MCHC 33.2 RDW 14.4 Plt Count 76 L MPV 8.3 Neutrophils % 69.6 Neutrophils % (Manual) Not Reportable Lymphocytes % 24.9 Monocytes % 4.3 Eosinophils % 1.1 Basophils % 0.0 Neutrophils # 3.5 Lymphocytes # 1.3 Monocytes # 0.2 Eosinophils # 0.1 Basophils # 0.0 Plt Morphology Comment Appears Decreased L PT INR APTT Specimen Type Puncture Site Bicarbonate Actual ABG pH ABG pCO2 ABG pO2 ABG O2 Sat Calc/Jihan ABG O2 Content ABG Base Excess ABG Hematocrit ABG Hemoglobin ABG Oxyhemoglobin ABG Carboxyhemoglobin ABG Methemoglobin ABG Deoxyhemoglobin Jeremie Test A-a O2 Gradient Ionized Calcium Mode of Support % Minute Volume Mechanical Rate Spontaneous Rate Inspired O2 Inspiratory Time Tidal Volume Spontaneous Tidal Vol Peak Inspir Pressure Pressure Support PEEP or CPAP Sodium 141 Potassium 4.7 Chloride 110 H Carbon Dioxide 16 L Anion Gap 20 BUN 5 L Creatinine 0.99 Estimated GFR (MDRD) 78 Glucose 149 H POC Glucose Lactic Acid Calcium 8.3 Phosphorus Magnesium 1.8 Total Bilirubin 1.0 AST 65 H ALT 40 Alkaline Phosphatase 81 Creatine Kinase 166 CK-MB (CK-2) Troponin I B-Natriuretic Peptide Serum Total Protein 6.3 Albumin 3.0 L Globulin 3.3 Albumin/Globulin Ratio 0.9 L Urine Color Urine Clarity Urine pH Ur Specific [place] Urine Protein Urine Glucose (UA) Urine Ketones Urine Blood Urine Nitrite Urine Bilirubin Urine Urobilinogen Ur Leukocyte Esterase Urine RBC Urine WBC Ur Squamous Epith Cells Urine Crystals Urine Bacteria Hyaline Casts Other Casts Urine Sperm Blood Type Antibody Screen 07/31/18 07/31/18 07/31/18 10:09 10:09 10:14 WBC RBC Hgb Hct MCV MCH MCHC RDW Plt Count MPV Neutrophils % Neutrophils % (Manual) Lymphocytes % Monocytes % Eosinophils % Basophils % Neutrophils # Lymphocytes # Monocytes # Eosinophils # Basophils # Plt Morphology Comment PT 18.6 H INR 1.5 APTT 35.7 Specimen Type Puncture Site Bicarbonate Actual ABG pH ABG pCO2 ABG pO2 ABG O2 Sat Calc/Jihan ABG O2 Content ABG Base Excess ABG Hematocrit ABG Hemoglobin ABG Oxyhemoglobin ABG Carboxyhemoglobin ABG Methemoglobin ABG Deoxyhemoglobin Jeremie Test A-a O2 Gradient Ionized Calcium Mode of Support % Minute Volume Mechanical Rate Spontaneous Rate Inspired O2 Inspiratory Time Tidal Volume Spontaneous Tidal Vol Peak Inspir Pressure Pressure Support PEEP or CPAP Sodium Potassium Chloride Carbon Dioxide Anion Gap BUN Creatinine Estimated GFR (MDRD) Glucose POC Glucose Lactic Acid Calcium Phosphorus Magnesium Total Bilirubin AST ALT Alkaline Phosphatase Creatine Kinase CK-MB (CK-2) Troponin I Less than 0.010 B-Natriuretic Peptide Serum Total Protein Albumin Globulin Albumin/Globulin Ratio Urine Color YELLOW Urine Clarity CLOUDY Urine pH 7.0 Ur Specific [place] 1.011 Urine Protein 300 H Urine Glucose (UA) 100 H Urine Ketones Negative Urine Blood Moderate H Urine Nitrite Negative Urine Bilirubin Negative Urine Urobilinogen 1.0 Ur Leukocyte Esterase Negative Urine RBC 7-10 H Urine WBC 7-10 H Ur Squamous Epith Cells 0-3 Urine Crystals 1+ AMORPH PHOS Urine Bacteria Rare-Few Hyaline Casts NONE SEEN Other Casts None Seen Urine Sperm 4+ H Blood Type Antibody Screen 07/31/18 07/31/18 07/31/18 10:49 10:49 11:22 WBC RBC Hgb Hct MCV MCH MCHC RDW Plt Count MPV Neutrophils % Neutrophils % (Manual) Lymphocytes % Monocytes % Eosinophils % Basophils % Neutrophils # Lymphocytes # Monocytes # Eosinophils # Basophils # Plt Morphology Comment PT INR APTT Specimen Type ARTERIAL Puncture Site LR Bicarbonate Actual 21.1 L ABG pH 7.15 L* ABG pCO2 62.0 H* ABG pO2 76.9 L ABG O2 Sat Calc/Jihan 91.3 L ABG O2 Content 19.6 ABG Base Excess -8.8 L ABG Hematocrit 46.0 ABG Hemoglobin 15.7 ABG Oxyhemoglobin 88.6 L ABG Carboxyhemoglobin 2.4 ABG Methemoglobin 0.60 ABG Deoxyhemoglobin 8.4 H Jeremie Test POSITIVE A-a O2 Gradient 558.600 H Ionized Calcium 1.08 L Mode of Support SIMV % Minute Volume 14.0 Mechanical Rate 12 Spontaneous Rate 34 Inspired O2 100 Inspiratory Time Tidal Volume 500 Spontaneous Tidal Vol 556 Peak Inspir Pressure 14 Pressure Support 10 PEEP or CPAP 5.0 Sodium 144 Potassium 4.91 Chloride 110 H Carbon Dioxide Anion Gap BUN Creatinine Estimated GFR (MDRD) Glucose POC Glucose Lactic Acid 6.1 H* Calcium Phosphorus Magnesium Total Bilirubin AST ALT Alkaline Phosphatase Creatine Kinase CK-MB (CK-2) Troponin I B-Natriuretic Peptide Serum Total Protein Albumin Globulin Albumin/Globulin Ratio Urine Color Urine Clarity Urine pH Ur Specific [place] Urine Protein Urine Glucose (UA) Urine Ketones Urine Blood Urine Nitrite Urine Bilirubin Urine Urobilinogen Ur Leukocyte Esterase Urine RBC Urine WBC Ur Squamous Epith Cells Urine Crystals Urine Bacteria Hyaline Casts Other Casts Urine Sperm Blood Type O NEGATIVE Antibody Screen NEGATIVE 07/31/18 07/31/18 07/31/18 11:28 13:02 13:02 WBC RBC Hgb Hct MCV MCH MCHC RDW Plt Count MPV Neutrophils % Neutrophils % (Manual) Lymphocytes % Monocytes % Eosinophils % Basophils % Neutrophils # Lymphocytes # Monocytes # Eosinophils # Basophils # Plt Morphology Comment PT INR APTT Specimen Type Puncture Site Bicarbonate Actual ABG pH ABG pCO2 ABG pO2 ABG O2 Sat Calc/Jihan ABG O2 Content ABG Base Excess ABG Hematocrit ABG Hemoglobin ABG Oxyhemoglobin ABG Carboxyhemoglobin ABG Methemoglobin ABG Deoxyhemoglobin Jeremie Test A-a O2 Gradient Ionized Calcium Mode of Support % Minute Volume Mechanical Rate Spontaneous Rate Inspired O2 Inspiratory Time Tidal Volume Spontaneous Tidal Vol Peak Inspir Pressure Pressure Support PEEP or CPAP Sodium Potassium Chloride Carbon Dioxide Anion Gap BUN Creatinine Estimated GFR (MDRD) Glucose POC Glucose Lactic Acid 3.6 H Calcium Phosphorus Magnesium Total Bilirubin AST ALT Alkaline Phosphatase Creatine Kinase CK-MB (CK-2) Troponin I B-Natriuretic Peptide 38.9 Serum Total Protein Albumin Globulin Albumin/Globulin Ratio Urine Color Urine Clarity Urine pH Ur Specific [place] Urine Protein Urine Glucose (UA) Urine Ketones Urine Blood Urine Nitrite Urine Bilirubin Urine Urobilinogen Ur Leukocyte Esterase Urine RBC Urine WBC Ur Squamous Epith Cells Urine Crystals Urine Bacteria Hyaline Casts Other Casts Urine Sperm Blood Type O NEGATIVE Antibody Screen 07/31/18 07/31/18 07/31/18 13:03 13:15 19:51 WBC RBC Hgb Hct MCV MCH MCHC RDW Plt Count MPV Neutrophils % Neutrophils % (Manual) Lymphocytes % Monocytes % Eosinophils % Basophils % Neutrophils # Lymphocytes # Monocytes # Eosinophils # Basophils # Plt Morphology Comment PT INR APTT Specimen Type ARTERIAL Puncture Site RRRA Bicarbonate Actual 21.4 L ABG pH 7.17 L* ABG pCO2 59.5 H ABG pO2 73.2 L ABG O2 Sat Calc/Jihan 91.1 L ABG O2 Content 18.5 ABG Base Excess -7.9 L ABG Hematocrit 44.0 ABG Hemoglobin 14.8 ABG Oxyhemoglobin 89.0 L ABG Carboxyhemoglobin 2.0 ABG Methemoglobin 0.30 ABG Deoxyhemoglobin 8.7 H Jeremie Test A-a O2 Gradient 565.425 H Ionized Calcium 1.10 L Mode of Support SIMV % Minute Volume 14.1 Mechanical Rate 24 Spontaneous Rate 11 Inspired O2 100 Inspiratory Time Tidal Volume 500 Spontaneous Tidal Vol 325 Peak Inspir Pressure 42 Pressure Support 10 PEEP or CPAP 5.0 Sodium 145 141 Potassium 4.46 3.5 Chloride 110 H 108 H Carbon Dioxide 23 Anion Gap 14 BUN 12 Creatinine 0.79 Estimated GFR (MDRD) Greater than 90 Glucose 188 H POC Glucose 185 H Lactic Acid Calcium 8.1 Phosphorus 3.5 Magnesium 1.4 L Total Bilirubin AST ALT Alkaline Phosphatase Creatine Kinase CK-MB (CK-2) Troponin I B-Natriuretic Peptide Serum Total Protein Albumin Globulin Albumin/Globulin Ratio Urine Color Urine Clarity Urine pH Ur Specific [place] Urine Protein Urine Glucose (UA) Urine Ketones Urine Blood Urine Nitrite Urine Bilirubin Urine Urobilinogen Ur Leukocyte Esterase Urine RBC Urine WBC Ur Squamous Epith Cells Urine Crystals Urine Bacteria Hyaline Casts Other Casts Urine Sperm Blood Type Antibody Screen 07/31/18 07/31/18 07/31/18 19:51 19:51 19:51 WBC 4.8 RBC 4.12 L Hgb 13.8 L Hct 40.4 L MCV 97.9 MCH 33.4 H MCHC 34.2 RDW 14.1 Plt Count 56 L MPV 8.7 Neutrophils % 82.1 H Neutrophils % (Manual) Not Reportable Lymphocytes % 13.2 L Monocytes % 4.0 Eosinophils % 0.4 Basophils % 0.3 Neutrophils # 3.9 Lymphocytes # 0.6 L Monocytes # 0.2 Eosinophils # 0.0 Basophils # 0.0 Plt Morphology Comment PT 16.9 H INR 1.4 APTT 32.2 Specimen Type Puncture Site Bicarbonate Actual ABG pH ABG pCO2 ABG pO2 ABG O2 Sat Calc/Jihan ABG O2 Content ABG Base Excess ABG Hematocrit ABG Hemoglobin ABG Oxyhemoglobin ABG Carboxyhemoglobin ABG Methemoglobin ABG Deoxyhemoglobin Jeremie Test A-a O2 Gradient Ionized Calcium Mode of Support % Minute Volume Mechanical Rate Spontaneous Rate Inspired O2 Inspiratory Time Tidal Volume Spontaneous Tidal Vol Peak Inspir Pressure Pressure Support PEEP or CPAP Sodium Potassium Chloride Carbon Dioxide Anion Gap BUN Creatinine Estimated GFR (MDRD) Glucose POC Glucose Lactic Acid Calcium Phosphorus Magnesium Total Bilirubin AST ALT Alkaline Phosphatase Creatine Kinase CK-MB (CK-2) 9.7 H* Troponin I 0.045 H B-Natriuretic Peptide Serum Total Protein Albumin Globulin Albumin/Globulin Ratio Urine Color Urine Clarity Urine pH Ur Specific [place] Urine Protein Urine Glucose (UA) Urine Ketones Urine Blood Urine Nitrite Urine Bilirubin Urine Urobilinogen Ur Leukocyte Esterase Urine RBC Urine WBC Ur Squamous Epith Cells Urine Crystals Urine Bacteria Hyaline Casts Other Casts Urine Sperm Blood Type Antibody Screen 08/01/18 08/01/18 08/01/18 03:04 03:04 03:04 WBC 6.3 RBC 4.42 L Hgb 14.8 Hct 42.9 MCV 96.9 MCH 33.4 H MCHC 34.4 RDW 13.8 Plt Count 56 L MPV 9.2 Neutrophils % 78.9 H Neutrophils % (Manual) Lymphocytes % 15.4 L Monocytes % 4.4 Eosinophils % 0.3 Basophils % 1.0 Neutrophils # 4.9 Lymphocytes # 1.0 L Monocytes # 0.3 Eosinophils # 0.0 Basophils # 0.1 Plt Morphology Comment PT INR APTT Specimen Type Puncture Site Bicarbonate Actual ABG pH ABG pCO2 ABG pO2 ABG O2 Sat Calc/Jihan ABG O2 Content ABG Base Excess ABG Hematocrit ABG Hemoglobin ABG Oxyhemoglobin ABG Carboxyhemoglobin ABG Methemoglobin ABG Deoxyhemoglobin Jeremie Test A-a O2 Gradient Ionized Calcium Mode of Support % Minute Volume Mechanical Rate Spontaneous Rate Inspired O2 Inspiratory Time Tidal Volume Spontaneous Tidal Vol Peak Inspir Pressure Pressure Support PEEP or CPAP Sodium 137 Potassium 3.0 L Chloride 104 Carbon Dioxide 24 Anion Gap 12 BUN 12 Creatinine 0.73 Estimated GFR (MDRD) Greater than 90 Glucose 204 H POC Glucose Lactic Acid Calcium 8.5 Phosphorus 1.6 L Magnesium 1.5 L Total Bilirubin AST ALT Alkaline Phosphatase Creatine Kinase CK-MB (CK-2) 7.6 H* Troponin I 0.041 H B-Natriuretic Peptide Serum Total Protein Albumin Globulin Albumin/Globulin Ratio Urine Color Urine Clarity Urine pH Ur Specific [place] Urine Protein Urine Glucose (UA) Urine Ketones Urine Blood Urine Nitrite Urine Bilirubin Urine Urobilinogen Ur Leukocyte Esterase Urine RBC Urine WBC Ur Squamous Epith Cells Urine Crystals Urine Bacteria Hyaline Casts Other Casts Urine Sperm Blood Type Antibody Screen 08/01/18 08/01/18 08/01/18 03:04 04:40 04:40 WBC RBC Hgb Hct MCV MCH MCHC RDW Plt Count MPV Neutrophils % Neutrophils % (Manual) Lymphocytes % Monocytes % Eosinophils % Basophils % Neutrophils # Lymphocytes # Monocytes # Eosinophils # Basophils # Plt Morphology Comment PT 15.5 H INR 1.2 APTT 32.1 Specimen Type Puncture Site Bicarbonate Actual ABG pH ABG pCO2 ABG pO2 ABG O2 Sat Calc/Jihan ABG O2 Content ABG Base Excess ABG Hematocrit ABG Hemoglobin ABG Oxyhemoglobin ABG Carboxyhemoglobin ABG Methemoglobin ABG Deoxyhemoglobin Jeremie Test A-a O2 Gradient Ionized Calcium Mode of Support % Minute Volume Mechanical Rate Spontaneous Rate Inspired O2 Inspiratory Time Tidal Volume Spontaneous Tidal Vol Peak Inspir Pressure Pressure Support PEEP or CPAP Sodium 136 Potassium 3.3 L Chloride 104 Carbon Dioxide 22 Anion Gap 13 BUN 11 Creatinine 0.68 L Estimated GFR (MDRD) Greater than 90 Glucose 198 H POC Glucose Lactic Acid 3.5 H Calcium 8.4 Phosphorus Magnesium Total Bilirubin 1.6 H AST 61 H ALT 45 Alkaline Phosphatase 74 Creatine Kinase CK-MB (CK-2) Troponin I B-Natriuretic Peptide Serum Total Protein 6.8 Albumin 3.1 L Globulin 3.7 H Albumin/Globulin Ratio 0.8 L Urine Color Urine Clarity Urine pH Ur Specific [place] Urine Protein Urine Glucose (UA) Urine Ketones Urine Blood Urine Nitrite Urine Bilirubin Urine Urobilinogen Ur Leukocyte Esterase Urine RBC Urine WBC Ur Squamous Epith Cells Urine Crystals Urine Bacteria Hyaline Casts Other Casts Urine Sperm Blood Type Antibody Screen 08/01/18 08/01/18 08/01/18 04:40 06:45 08:13 WBC 6.3 7.1 RBC 4.21 L 4.47 L Hgb 14.1 15.1 Hct 40.8 L 42.8 MCV 96.9 95.7 MCH 33.6 H 33.7 H MCHC 34.7 35.2 RDW 14.0 13.7 Plt Count 55 L 56 L MPV 9.4 8.7 Neutrophils % 83.9 H 81.6 H Neutrophils % (Manual) Not Reportable Lymphocytes % 11.3 L 13.7 L Monocytes % 4.5 4.4 Eosinophils % 0.1 0.2 Basophils % 0.2 0.2 Neutrophils # 5.3 5.8 Lymphocytes # 0.7 L 1.0 L Monocytes # 0.3 0.3 Eosinophils # 0.0 0.0 Basophils # 0.0 0.0 Plt Morphology Comment PT INR APTT Specimen Type ARTERIAL Puncture Site RBA Bicarbonate Actual 21.9 L ABG pH 7.40 ABG pCO2 36.0 ABG pO2 91.2 ABG O2 Sat Calc/Jihan 97.0 ABG O2 Content 20.8 ABG Base Excess -2.2 L ABG Hematocrit 45.0 ABG Hemoglobin 15.4 ABG Oxyhemoglobin 95.6 ABG Carboxyhemoglobin 1.1 ABG Methemoglobin 0.30 ABG Deoxyhemoglobin 3.0 H Jeremie Test NOT DONE A-a O2 Gradient 362.900 H Ionized Calcium 1.09 L Mode of Support BILEVEL % Minute Volume Mechanical Rate 24 Spontaneous Rate Inspired O2 70 Inspiratory Time 0.80 Tidal Volume Spontaneous Tidal Vol Peak Inspir Pressure 30 Pressure Support 12 PEEP or CPAP 10.0 Sodium 145 Potassium 3.18 L Chloride 106 Carbon Dioxide Anion Gap BUN Creatinine Estimated GFR (MDRD) Glucose POC Glucose Lactic Acid Calcium Phosphorus Magnesium Total Bilirubin AST ALT Alkaline Phosphatase Creatine Kinase CK-MB (CK-2) Troponin I B-Natriuretic Peptide Serum Total Protein Albumin Globulin Albumin/Globulin Ratio Urine Color Urine Clarity Urine pH Ur Specific [place] Urine Protein Urine Glucose (UA) Urine Ketones Urine Blood Urine Nitrite Urine Bilirubin Urine Urobilinogen Ur Leukocyte Esterase Urine RBC Urine WBC Ur Squamous Epith Cells Urine Crystals Urine Bacteria Hyaline Casts Other Casts Urine Sperm Blood Type Antibody Screen 08/01/18 08/01/18 08:23 08:23 WBC RBC Hgb Hct MCV MCH MCHC RDW Plt Count MPV Neutrophils % Neutrophils % (Manual) Lymphocytes % Monocytes % Eosinophils % Basophils % Neutrophils # Lymphocytes # Monocytes # Eosinophils # Basophils # Plt Morphology Comment PT INR APTT Specimen Type Puncture Site Bicarbonate Actual ABG pH ABG pCO2 ABG pO2 ABG O2 Sat Calc/Jihan ABG O2 Content ABG Base Excess ABG Hematocrit ABG Hemoglobin ABG Oxyhemoglobin ABG Carboxyhemoglobin ABG Methemoglobin ABG Deoxyhemoglobin Jeremie Test A-a O2 Gradient Ionized Calcium Mode of Support % Minute Volume Mechanical Rate Spontaneous Rate Inspired O2 Inspiratory Time Tidal Volume Spontaneous Tidal Vol Peak Inspir Pressure Pressure Support PEEP or CPAP Sodium 139 Potassium 3.3 L Chloride 105 Carbon Dioxide 23 Anion Gap 14 BUN 10 Creatinine 0.68 L Estimated GFR (MDRD) Greater than 90 Glucose 216 H POC Glucose Lactic Acid Calcium 8.8 Phosphorus 2.3 Magnesium 1.5 L Total Bilirubin AST ALT Alkaline Phosphatase Creatine Kinase CK-MB (CK-2) Troponin I 0.017 B-Natriuretic Peptide Serum Total Protein Albumin Globulin Albumin/Globulin Ratio Urine Color Urine Clarity Urine pH Ur Specific [place] Urine Protein Urine Glucose (UA) Urine Ketones Urine Blood Urine Nitrite Urine Bilirubin Urine Urobilinogen Ur Leukocyte Esterase Urine RBC Urine WBC Ur Squamous Epith Cells Urine Crystals Urine Bacteria Hyaline Casts Other Casts Urine Sperm Blood Type Antibody Screen FMR OB H&P: A/P - Problem List (1) Cardiac arrest Current Visit: Yes Status: Acute Code(s): I46.9 - CARDIAC ARREST, CAUSE UNSPECIFIED (2) COPD (chronic obstructive pulmonary disease) Current Visit: Yes Status: Acute (3) Alcohol abuse Current Visit: Yes Status: Acute Code(s): F10.10 - ALCOHOL ABUSE, UNCOMPLICATED (4) Anaphylactic shock Current Visit: Yes Status: Acute Code(s): T78.2XXA - ANAPHYLACTIC SHOCK, UNSPECIFIED, INITIAL ENCOUNTER (5) History of stroke Current Visit: Yes Status: Acute Code(s): Z86.73 - PRSNL HX OF TIA (TIA), AND CEREB INFRC W/O RESID DEFICITS (6) Tobacco abuse Current Visit: Yes Status: Acute Code(s): Z72.0 - TOBACCO USE Discussion: Date/Time: 08/01/18 0913 This H&P was discussed with [] and [] who agree with the above documentation and plan.
[2018-08-01 09:22] LABS: INR-International Normal Ratio 1.1; PTT 31.7 SEC (22.9-36.1); Prothrombin Time 14.7 SEC (12.0-14.7)
[2018-08-01 11:25] LABS: Anion Gap 17 mmol/L (10-20); BUN (Urea Nitrogen) 10 mg/dL (8.4-25.7); Calc. Creatinine Clearance 245 mL/min (70-130); Calcium 8.5 mg/dL (7.8-10.44); Carbon Dioxide 19 mmol/L (22-29); Chloride 105 mmol/L (98-107); Estimated GFR-MDRD Greater than 90; Glucose 215 mg/dL (70-105); Sodium 138 mmol/L (136-145)
[2018-08-01 11:58] LABS: Potassium 2.9 mmol/L (3.5-5.1)
[2018-08-01 14:00] LABS: #Lymphocytes 0.9 thou/uL (1.20-3.40); #Monocytes 0.3 thou/uL (0.11-0.59); %Basophils 0.1 % (0.0-1.0); %Eosinophils 0.1 % (0.0-10.0); %Lymphocytes 12.8 % (21.0-51.0); %Monocytes 3.6 % (0.0-10.0); %Neutrophils 83.4 % (42.0-75.0); Hemoglobin 14.8 g/dL (14.0-18.0); Mean Corpuscular HGB CONC 33.5 g/dL (32.0-36.0); Mean Corpuscular Hemoglobin 31.9 pg (27.0-31.0); Mean Corpuscular Volume 95.4 fL (78.0-98.0); Mean Platelet Volume 9.4 fL (7.4-10.4); Platelet Count 57 thou/uL (130-400); RBC Distribution Width 13.6 % (11.5-14.5); Red Blood Cell (RBC) Count 4.63 mill/uL (4.70-6.10); White Blood Cell (WBC) Count 7.1 thou/uL (4.8-10.8)
[2018-08-01 14:04] LABS: INR-International Normal Ratio 1.2; PTT 30.3 SEC (22.9-36.1)
[2018-08-01 14:45] LABS: Anion Gap 15 mmol/L (10-20); BUN (Urea Nitrogen) 10 mg/dL (8.4-25.7); Calc. Creatinine Clearance 249 mL/min (70-130); Calcium 8.6 mg/dL (7.8-10.44); Carbon Dioxide 20 mmol/L (22-29); Chloride 106 mmol/L (98-107); Estimated GFR-MDRD Greater than 90; Glucose 216 mg/dL (70-105); Magnesium 1.6 mg/dL (1.6-2.6); Phosphorus 1.5 mg/dL (2.3-4.7); Potassium 2.7 mmol/L (3.5-5.1); Sodium 138 mmol/L (136-145)
[2018-08-01] MEDS: Lorazepam 2 MG/ML VIAL SLOW IVP PRN (19:53)
[2018-08-01 20:39] LABS: #Lymphocytes 0.7 thou/uL (1.20-3.40); #Monocytes 0.5 thou/uL (0.11-0.59); #Neutrophils 8.5 thou/uL (1.40-6.50); %Basophils 0.2 % (0.0-1.0); %Eosinophils 0.1 % (0.0-10.0); %Lymphocytes 7.5 % (21.0-51.0); %Monocytes 5.3 % (0.0-10.0); Hemoglobin 14.3 g/dL (14.0-18.0); Mean Corpuscular HGB CONC 34.6 g/dL (32.0-36.0); Mean Corpuscular Hemoglobin 33.1 pg (27.0-31.0); Mean Corpuscular Volume 95.6 fL (78.0-98.0); Platelet Count 71 thou/uL (130-400); RBC Distribution Width 13.9 % (11.5-14.5); Red Blood Cell (RBC) Count 4.33 mill/uL (4.70-6.10); White Blood Cell (WBC) Count 9.8 thou/uL (4.8-10.8)
[2018-08-01 20:43] LABS: INR-International Normal Ratio 1.2; PTT 29.1 SEC (22.9-36.1); Prothrombin Time 15.7 SEC (12.0-14.7)
[2018-08-01 21:53] LABS: Chloride 107 mmol/L (98-107); Magnesium 1.4 mg/dL (1.6-2.6); Potassium 3.3 mmol/L (3.5-5.1); Sodium 141 mmol/L (136-145)
[2018-08-01 21:54] LABS: Calcium 8.4 mg/dL (7.8-10.44); Glucose 178 mg/dL (70-105)
[2018-08-01 21:56] LABS: Anion Gap 17 mmol/L (10-20); Carbon Dioxide 20 mmol/L (22-29)
[2018-08-01 21:58] LABS: Calc. Creatinine Clearance 219 mL/min (70-130); Estimated GFR-MDRD Greater than 90
[2018-08-01 21:59] LABS: BUN (Urea Nitrogen) 12 mg/dL (8.4-25.7)
[2018-08-01 22:11] LABS: Phosphorus 2.4 mg/dL (2.3-4.7)
[2018-08-01] MEDS: Acetaminophen 650 MG/20.3 ML UDCUP PER TUBE PRN (22:24)
[2018-08-02] MEDS: Lactated Ringer's 1,000 ML IV SCH ×3 (00:53→13:42)
[2018-08-02] MEDS: methylPREDNISolone Sod Succ 40 MG VIAL IVP SCH ×3 (00:54→17:45)
[2018-08-02] MEDS: Propofol 1,000 MG/100 ML VIAL IV PRN ×6 (02:00→23:03)
[2018-08-02] MEDS: Vecuronium 10 MG VIAL IV PRN ×2 (03:24→18:47)
[2018-08-02 04:47] LABS: Hemoglobin 13.8 g/dL (14.0-18.0); Mean Corpuscular HGB CONC 35.1 g/dL (32.0-36.0); Mean Corpuscular Hemoglobin 33.7 pg (27.0-31.0); Mean Platelet Volume 9.5 fL (7.4-10.4); Platelet Count 72 thou/uL (130-400); Red Blood Cell (RBC) Count 4.11 mill/uL (4.70-6.10); White Blood Cell (WBC) Count 8.8 thou/uL (4.8-10.8)
[2018-08-02 04:58] LABS: Anion Gap 17 mmol/L (10-20); BUN (Urea Nitrogen) 15 mg/dL (8.4-25.7); Calc. Creatinine Clearance 193 mL/min (70-130); Calcium 8.3 mg/dL (7.8-10.44); Carbon Dioxide 21 mmol/L (22-29); Chloride 106 mmol/L (98-107); Estimated GFR-MDRD Greater than 90; Glucose 194 mg/dL (70-105); Potassium 3.5 mmol/L (3.5-5.1); Sodium 140 mmol/L (136-145)
[2018-08-02] MEDS: diphenhydrAMINE 50 MG/ML VIAL IVP SCH ×3 (05:03→22:58)
[2018-08-02] MEDS ORDERED: Lorazepam 2 MG/ML VIAL SLOW IVP SCH (06:00)
--- NOTE | 2018-08-02 06:14 | PDOC.FM ---
- Subjective Subjective: Overnight the patient did spike fever to 101.6, tylenol and cooling blanket were administered. patient is still sedated although he is starting to move some per nursing staff. yesterday spoke with son and daughter who confirmed he was to be full code for now, they are awaiting more info from neurology. - Objective Vital Signs & Weight: Vital Signs (12 hours) Temp Pulse Resp BP Pulse Ox 08/02/18 04:00 24 H 08/02/18 02:18 127 H 101/62 08/02/18 02:00 24 H 08/02/18 00:06 135 H 136/60 08/02/18 00:00 102 F H 24 H 08/01/18 23:00 101.0 F H 08/01/18 22:15 129 H 123/71 08/01/18 22:00 100.0 F H 24 H 08/01/18 20:00 29 H 94 L 08/01/18 19:00 98.5 F 08/01/18 18:37 97.5 F L 08/01/18 18:23 108 H 113/68 Weight Admit Weight 141.974 kg Weight 142 kg Most Recent Monitor Data Heart Rate from ECG 123 NIBP 141/73 NIBP BP-Mean 95 Respiration from ECG 13 SpO2 100 I&O: 07/31/18 08/01/18 08/02/18 06:59 06:59 06:59 Intake Total 2395.5 4022 Output Total 3392 2670 Balance -996.5 1352 Result Diagrams: 08/02/18 04:16 08/02/18 04:16 Phys Exam - Physical Examination sedated HEENT: moist MMs Pupils reactive crackles on R Cardiovascular: RRR, no significant murmur Gastrointestinal: soft, non-tender, no distention, positive bowel sounds Musculoskeletal: no edema, pulses present sedated Skin: no rash, cap refill <2 seconds Deviation from normal: L lower extremity has warmth as compared to R, superficial wound as photo Dx/Plan (1) Cardiac arrest Code(s): I46.9 - CARDIAC ARREST, CAUSE UNSPECIFIED Status: Acute (2) COPD (chronic obstructive pulmonary disease) Status: Acute (3) Alcohol abuse Code(s): F10.10 - ALCOHOL ABUSE, UNCOMPLICATED Status: Acute (4) Anaphylactic shock Code(s): T78.2XXA - ANAPHYLACTIC SHOCK, UNSPECIFIED, INITIAL ENCOUNTER Status : Acute (5) History of stroke Code(s): Z86.73 - PRSNL HX OF TIA (TIA), AND CEREB INFRC W/O RESID DEFICITS Status: Acute (6) Tobacco abuse Code(s): Z72.0 - TOBACCO USE Status: Acute - Plan Plan: Assessment and Plan This is a 58 yo M admitted for anaphylactic shock and ROSC x2 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 MANAGER AUDIO (hx of stroke, possible anoxic brain injury 2/2 arrest x2) - Sedation: propofol - suspect PEA >7 min, ROSC x2 - Neurology consulted, appreciate recs - stated could not eval yesterday with sedation, will follow Resp (flash pulm edema 2/2 arrest, COPD, heavy tobacco abuse) - AB.4//-2 - Vent settings: PC, rate 24, FiO2 40 - 50+ pack-year tobacco abuse CV (anaphylactic shock 2/2 bee sting- resolved, hx of cardiac surgery, ROSC x2) - Pressors: none - Solumedrol, famotidine, benadryl - EF 50-55%, BNP 38 - trop 9.7-> 7.6 - cooling protocol - LA 9.7-> 7.6 -> 3.5 GI (ETOH abuse, consider ETOH withdrawal) - 12 pack of beer per day, will start ativan 2mg q6 hrs as patient is tachycardic today - On pantoprazole - blood from NG tube has significantly decreased /Renal (Suspect Diabetes insipidus) - U/O: 0.78 ml/kg/hr - urine na 83, urine osm 254, serum osm 298 - urine output has slowed down, serum sodium holding steady at 140, will monitor Infection (tachycardic, febrile, suspect PNA vs Cellulitus vs alcohol withdrawal) - atelectasis noted on CXR - Bcx x2 show NGTD at 24 hrs - will start on doxycycline as patient has severe penicillin, he is on propofol drip so flouroquinolone is not great 2/2 qt prolongation Endo (see renal) Lines/Tubes: Intubated, R IJ CVC Code status: full PPx: famotidine Dispo: guarded Addendum - Attending - Attending Attestation Date/Time: 08/02/18 3051 I personally evaluated the patient and discussed the management with Dr. Looney I agree with the History, Examination, Assessment and Plan documented above with any addition or exceptions noted below. To have EEG off sedation today cooling protocol completed,will await results of EEG. Note development of fever and tachycardia. Appreciate recommendation Critical Care patient urine output decreased from yesterday AM.
[2018-08-02 07:17] LABS: Actual Bicarbonate (HCO3a) 23.1 mEq/L (22-28); Base Excess (BEa) -0.8 mEq/L (-2.0 to +3.0); CO2 Tension 36.2 mmHg (35.0-45.0); Calcium, Ionized 1.06 mmol/L (1.12-1.30); Carboxyhemoglobin (COHb) 1.1 gm% (0.0-3.0); O2 Tension (PaO2) 69.3 mmHg (80.0-100.0); Puncture Site RRA; pH, Arterial 7.42 (7.35-7.45)
--- NOTE | 2018-08-02 07:44 | RAD ---
CHEST ONE VIEW: Indication: Follow up atelectasis, fever. Comparison: 08-01-18 FINDINGS: Patient remains intubated with gastric catheter placement. Low lung volumes are again seen. There is a small right pleural effusion. Right basilar airspace opacity has worsened. Cardiomegaly with pulmon autumn vascular congestion persists. No pneumothorax is evident. IMPRESSION: 1. Worsening right sided pleural effusion with worsening of basilar airspace opacity possibly reflect ing worsening atelectasis or pneumonia. 2. No pneumothorax. POS: BH
[2018-08-02] MEDS ORDERED: Bacteriostatic Water 30 ML VIAL FS PRN (08:20)
[2018-08-02] MEDS ORDERED: methylPREDNISolone Sod Succ 40 MG VIAL IVP SCH (09:00)
[2018-08-02] MEDS ORDERED: Doxycycline 100 MG in Syringe 0 ML IVPB SCH (09:00)
--- NOTE | 2018-08-02 09:03 | PRG ---
DATE OF SERVICE: 08/02/2018 SUBJECTIVE: Soren Roy is a 58-year-old gentleman. He is off all sedation. OBJECTIVE: VITAL SIGNS: Respirations 24; blood pressure 112/66 and on pressors ; pulse of 119, sinus tach; saturations are 97%; and afebrile. CHEST: Decreased breath sounds. No wheezing. CARDIAC: Sinus tach. ABDOMEN: Soft. NEUROLOGIC: Pupils are equal. He is unresponsive. LABORATORY DATA: PO2 is 69, pCO2 is 38 ph 7.42 on bilevel. Lytes are normal. Cultures are negative. ASSESSMENT: 1. Anoxic injury, status post cardiopulmonary arrest, etiology is still unclear. 2. Baseline chronic obstructive pulmonary disease. 3. Apparently heavy alcohol abuse. PLAN: Discontinue all sedation. We are going to order an EEG today and await Neurology input. Start nutrition, PT. Prognosis is guarded. We will discuss with family as they arrive. One-half hour of critical care time. Job ID: [id number] MTDD
[2018-08-02] MEDS: Famotidine/PF 20 mg/2ml Vial SLOW IVP SCH ×2 (09:05→20:52)
[2018-08-02] MEDS: Enoxaparin Sodium 40 MG/0.4 ML SYRINGE SC SCH (09:05)
[2018-08-02] MEDS: Lorazepam 2 MG/ML VIAL SLOW IVP SCH ×2 (15:07→20:51)
[2018-08-02 15:21] LABS: Anion Gap 12 mmol/L (10-20); BUN (Urea Nitrogen) 17 mg/dL (8.4-25.7); Calc. Creatinine Clearance 210 mL/min (70-130); Carbon Dioxide 24 mmol/L (22-29); Chloride 106 mmol/L (98-107); Estimated GFR-MDRD Greater than 90; Glucose 191 mg/dL (70-105); Potassium 3.9 mmol/L (3.5-5.1); Sodium 138 mmol/L (136-145)
--- NOTE | 2018-08-02 15:57 | EEG ---
Referring Physician: Daljit LYONS EEG # [] [id number] TEST TYPE: ROUTINE PORTABLE INPATIENT REPORT: AN EEG USING THE INTERNATIONAL TEN-TWENTY SYSTEM OF ELECTRODE PLACEMENT WAS PERFORMED. The background activity consists of a very low amplitude 9 hertz alpha frequency. Photic stimulation did not alter the background. No epileptiform features were present. The patient was poorly responsive. 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 CLINICAL CORRELATION IS NEEDED. Exterior Work Helper: IVELISSE Quality Control Microbiology Supervisor: EEG.JOSE CHAVARRIA
[2018-08-02] MEDS: Lorazepam 2 MG/ML VIAL SLOW IVP PRN (18:33)
[2018-08-02] MEDS ORDERED: Vecuronium 10 MG VIAL ONE (18:44)
[2018-08-02] MEDS ORDERED: Vecuronium 10 MG VIAL IV PRN (18:59)
[2018-08-02] MEDS ORDERED: Vecuronium 10 MG VIAL IV SCH (19:20)
[2018-08-02] MEDS ORDERED: Sterile Water 10 ML VIAL IVP PRN (19:23)
[2018-08-02] MEDS: Acetaminophen 650 MG/20.3 ML UDCUP PER TUBE PRN (20:23)
--- NOTE | 2018-08-03 00:02 | CON ---
DATE OF CONSULTATION: 08/02/2018 CONSULTING PHYSICIAN: Hospitalist Services. IMPRESSION: Probable anoxic injury to the brain. PLAN: Monitor clinical course. HISTORY OF PRESENT ILLNESS: Mr. Roy is a 58-year-old gentleman who apparently got stung by a bee. He started having an allergic reaction and told his that he was getting short of breath. He became progressively more distressed and apparently then developed cardiac arrest, resuscitation was undertaken. He was in an out of normal rhythm 2 or 3 times based on what I have been told. He was subsequently intubated and put on the cooling protocol. He was warmed about 24 hours ago. He had an EEG done earlier off sedation, which showed a very low amplitude alpha background, which was nonreactive suggesting alpha coma. He has a past history of a minor stroke. He had an echocardiogram done, which showed a 50% to 55%. ejection fraction. CT of the brain was otherwise unremarkable. PAST MEDICAL HISTORY: As noted. ALLERGIES: NONE REPORTED. SOCIAL HISTORY: No tobacco or illicit drug use. FAMILY HISTORY: Noncontributory. REVIEW OF SYSTEMS: Ten system, review of system is not obtainable. PHYSICAL EXAMINATION: GENERAL: He is a large, middle-aged man, lying in bed, in ventilatory support. VITAL SIGNS: Blood pressure 107/58, pulse 113, saturations 97%. He is breathing over the ventilator. HEENT: His eyes are fixed and upward deviation. Doll's head maneuver produces some limited lateral deviation. He did not have any spontaneous eye opening. He had a corneal response to stimulation. Truncal pain response produced some extensor posturing. Mild painful stimulation of the feet produced withdrawal. No other abnormal movements were seen other than he tends to lift his head off the bed. SUMMARY: Given the clinical picture, he remains in a dior zone. His prognosis is indeterminate at this point, and continued supportive efforts are needed. I have advised the family that we need 48-72 hours of observation to determine whether he will regain consciousness. He will continue following his care. Job ID: [id number]
[2018-08-03] MEDS: Propofol 1,000 MG/100 ML VIAL IV PRN ×6 (03:04→22:40)
[2018-08-03] MEDS: Lorazepam 2 MG/ML VIAL SLOW IVP SCH ×4 (03:04→20:12)
[2018-08-03] MEDS: Lactated Ringer's 1,000 ML IV SCH ×2 (05:38)
[2018-08-03] MEDS: diphenhydrAMINE 50 MG/ML VIAL IVP SCH ×3 (05:39→22:40)
[2018-08-03] MEDS: methylPREDNISolone Sod Succ 40 MG VIAL IVP SCH ×2 (05:39→17:04)
--- NOTE | 2018-08-03 06:03 | PDOC.FM ---
- Subjective Subjective: Around 1830 last night patient developed tachypnea which did not resolve with propofol bolus. He was evaluated and given doses of vecuronium following this he had an uneventful rest of the night. Fevered to 100.8 at 1900, afebrile the rest of the night. - Objective Vital Signs & Weight: Vital Signs (12 hours) Temp Pulse Resp BP Pulse Ox 08/03/18 04:00 98.5 F 08/03/18 02:08 85 97/49 L 08/03/18 02:00 20 08/03/18 00:00 98.7 F 20 08/02/18 23:57 97 98/54 L 08/02/18 22:11 123 H 99/56 L 08/02/18 22:00 20 08/02/18 21:00 98.8 F 08/02/18 20:00 20 08/02/18 19:05 20 99 08/02/18 19:00 100.8 F H 08/02/18 18:51 125 H 129/84 Weight Admit Weight 141.974 kg Weight 143.2 kg Most Recent Monitor Data Heart Rate from ECG 84 NIBP 106/62 NIBP BP-Mean 76 Respiration from ECG 15 SpO2 98 I&O: 08/01/18 08/02/18 08/03/18 06:59 06:59 06:59 Intake Total 2395.5 4022 3752 Output Total 3392 2715 1270 Balance -996.5 1307 2482 Result Diagrams: 08/03/18 05:45 08/03/18 05:45 Phys Exam - Physical Examination sedated pinpoint pupils Respiratory: clear to auscultation bilateral Cardiovascular: RRR, no significant murmur Gastrointestinal: soft, non-tender, no distention, positive bowel sounds Musculoskeletal: no edema sedated Deviation from normal: no redness or warmth to lower extremities today Dx/Plan (1) Cardiac arrest Code(s): I46.9 - CARDIAC ARREST, CAUSE UNSPECIFIED Status: Acute (2) COPD (chronic obstructive pulmonary disease) Status: Acute (3) Alcohol abuse Code(s): F10.10 - ALCOHOL ABUSE, UNCOMPLICATED Status: Acute (4) Anaphylactic shock Code(s): T78.2XXA - ANAPHYLACTIC SHOCK, UNSPECIFIED, INITIAL ENCOUNTER Status : Acute (5) History of stroke Code(s): Z86.73 - PRSNL HX OF TIA (TIA), AND CEREB INFRC W/O RESID DEFICITS Status: Acute (6) Tobacco abuse Code(s): Z72.0 - TOBACCO USE Status: Acute - Plan Plan: This is a 58 yo M admitted for suspected anaphylactic shock and ROSC x2 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 (hx of stroke, possible anoxic brain injury 2/2 arrest x2) - Sedation: propofol - suspect PEA >7 min, ROSC x2 - Neurology consulted, appreciate recs - alpha waves noted on EKG, indeterminiate prognosis, advised 48-72 hours of supportive care - pinpoint pupils this AM Resp (flash pulm edema 2/2 arrest, COPD, heavy tobacco abuse) - AB.42/36.2/69.3/-0.8 - Vent settings: VC rate 20, fi02 40, peep 7, tv 500 - suspect adjustment in vent setting will improve oxygenation - 50+ pack-year tobacco abuse CV (anaphylactic shock 2/2 bee sting- resolved, hx of cardiac surgery, ROSC x2) - Pressors: none - Solumedrol, famotidine, benadryl - EF 50-55%, BNP 38 - s/p cooling protocol - LA 9.7-> 7.6 -> 3.5 GI (ETOH abuse, consider ETOH withdrawal) - 12 pack of beer per day,on ativan 1mg q6 hrs - On pantoprazole - blood from NG tube has resolved /Renal (Suspect Diabetes insipidus) - U/O: 0.31 ml/kg/hr - urine na 83, urine osm 254, serum osm 298 - urine output decreased will monitor Infection (tachycardic-resolved, febrile, suspect PNA vs Cellulitus vs alcohol withdrawal) - atelectasis noted on CXR - Bcx x2 show NGTD at 24 hrs -on doxycycline as patient has severe penicillin, he is on propofol drip so flouroquinolone is not great 2/2 qt prolongation Endo (see renal) Lines/Tubes: Intubated, R IJ CVC Code status: full PPx: famotidine Dispo: guarded Addendum - Attending - Attending Attestation Date/Time: 08/03/18 2153 I personally evaluated the patient and discussed the management with Dr. Christian Looney I agree with the History, Examination, Assessment and Plan documented above with any addition or exceptions noted below. EEG and Neuro exam does not look promising continue to monitor and keep family apprised of guarded prognosis and likelihood significant anoxic injury.
[2018-08-03 06:05] LABS: Hemoglobin 11.8 g/dL (14.0-18.0); Mean Corpuscular HGB CONC 34.5 g/dL (32.0-36.0); Mean Corpuscular Hemoglobin 33.8 pg (27.0-31.0); Mean Corpuscular Volume 98.2 fL (78.0-98.0); Platelet Count 54 thou/uL (130-400); RBC Distribution Width 13.9 % (11.5-14.5); Red Blood Cell (RBC) Count 3.49 mill/uL (4.70-6.10); White Blood Cell (WBC) Count 3.9 thou/uL (4.8-10.8)
[2018-08-03 06:20] LABS: Anion Gap 11 mmol/L (10-20); BUN (Urea Nitrogen) 19 mg/dL (8.4-25.7); Calc. Creatinine Clearance 212 mL/min (70-130); Carbon Dioxide 27 mmol/L (22-29); Chloride 106 mmol/L (98-107); Estimated GFR-MDRD Greater than 90; Glucose 182 mg/dL (70-105); Potassium 3.8 mmol/L (3.5-5.1); Sodium 140 mmol/L (136-145)
[2018-08-03 07:14] LABS: Actual Bicarbonate (HCO3a) 26.6 mEq/L (22-28); Base Excess (BEa) 1.8 mEq/L (-2.0 to +3.0); CO2 Tension 42.5 mmHg (35.0-45.0); Calcium, Ionized 1.11 mmol/L (1.12-1.30); Carboxyhemoglobin (COHb) 0.7 gm% (0.0-3.0); Hemoglobin (Hb) 12.4 g/dL (14.0-18.0); O2 Tension (PaO2) 69.1 mmHg (80.0-100.0); Potassium - ABG Lab 3.84 mmol/L (3.70-5.30); pH, Arterial 7.42 (7.35-7.45)
[2018-08-03 07:18] LABS: ALV-art Gradient 162.975 (0-20); Puncture Site RB
[2018-08-03] MEDS: Enoxaparin Sodium 40 MG/0.4 ML SYRINGE SC SCH (07:50)
[2018-08-03] MEDS: Famotidine/PF 20 mg/2ml Vial SLOW IVP SCH ×2 (08:06→20:12)
[2018-08-03] MEDS: Sodium Chloride 0.9% 1,000 ML IV SCH ×2 (08:20→17:04)
--- NOTE | 2018-08-03 08:34 | PRG ---
DATE OF SERVICE: 08/03/2018 SUBJECTIVE: This morning, he is intubated on the vent. OBJECTIVE: VITAL SIGNS: Pulse 89, respirations 30, blood pressure _111\74 saturations are 91% to 94%. CHEST: Decreased breath sounds. Bilateral rhonchi. CARDIAC: Sinus tach. ABDOMEN: Distended. Soft. NEUROLOGICAL: Pupils are equal. He is unresponsive. He was sedated on Diprivan and fentanyl. IMPRESSION: 1. History of heavy alcohol abuse. 2. Status post cardiopulmonary arrest. 3. History of bee sting, associated with presumed anaphylaxis, questionable. 4. Thrombocytopenia. 5. History of cerebrovascular accident. 6. History of diabetes. PLAN: Hold all sedation today. EEG was nonspecific. Input from Neurology. Continue nutrition, PT. Continue empiric antibiotic and steroids for his COPD. Switch his IV to normal saline. Avoid paralytics. Avoid excessive sedation. Continue observation in the ICU. One-half hour of critical care time. Job ID: [id number] MTDD
--- NOTE | 2018-08-03 08:41 | RAD ---
Exam: Chest one view: HISTORY: Follow up atelectasis COMPARISON: 08/02/2018 FINDINGS: Life support lines are noted in place and stable. Poor inspiratory effort. Minimal pleural and parenc hymal opacity changes in both bases more so on the right base evidence for partial atelectasis and/or pneumonia or pneumonitis. No pneumothorax. Less inspiration than on the prior study, otherwise stable. Extensive postoperative changes of the cervical spine. IMPRESSION: Overall stable appearing chest. Bibasilar pleural and parenchymal opacity changes. Continued short-te follow-up.
[2018-08-04] MEDS: Propofol 1,000 MG/100 ML VIAL IV PRN ×5 (02:46→21:47)
[2018-08-04] MEDS: Lorazepam 2 MG/ML VIAL SLOW IVP SCH ×4 (02:51→20:23)
[2018-08-04 05:23] LABS: Hemoglobin 11.7 g/dL (14.0-18.0); Mean Corpuscular HGB CONC 34.4 g/dL (32.0-36.0); Mean Corpuscular Hemoglobin 33.9 pg (27.0-31.0); Mean Corpuscular Volume 98.4 fL (78.0-98.0); Mean Platelet Volume 9.2 fL (7.4-10.4); Platelet Count 43 thou/uL (130-400); RBC Distribution Width 13.7 % (11.5-14.5); Red Blood Cell (RBC) Count 3.46 mill/uL (4.70-6.10); White Blood Cell (WBC) Count 2.6 thou/uL (4.8-10.8)
[2018-08-04 05:45] LABS: Anion Gap 12 mmol/L (10-20); BUN (Urea Nitrogen) 21 mg/dL (8.4-25.7); Calc. Creatinine Clearance 227 mL/min (70-130); Carbon Dioxide 25 mmol/L (22-29); Chloride 106 mmol/L (98-107); Estimated GFR-MDRD Greater than 90; Glucose 194 mg/dL (70-105); Potassium 3.7 mmol/L (3.5-5.1); Sodium 139 mmol/L (136-145)
[2018-08-04] MEDS: Sodium Chloride 0.9% 1,000 ML IV SCH ×4 (06:15→21:46)
[2018-08-04] MEDS: diphenhydrAMINE 50 MG/ML VIAL IVP SCH ×3 (06:15→21:46)
[2018-08-04] MEDS: methylPREDNISolone Sod Succ 40 MG VIAL IVP SCH ×2 (06:16→17:29)
--- NOTE | 2018-08-04 06:22 | PDOC.FM ---
- Subjective Subjective: Overnight the patient had another episode of tachypnea which did not resolve with propofol bolus or ativan. Precedex was added and vent setting adjusted. This AM patient is becoming more bradycardic in the 50s. - Objective Vital Signs & Weight: Vital Signs (12 hours) Temp Pulse Resp BP Pulse Ox 08/04/18 06:00 19 08/04/18 04:00 16 08/04/18 02:21 68 102/52 L 08/04/18 02:00 16 08/04/18 00:19 80 17 97 08/04/18 00:00 98.4 F 20 08/03/18 22:10 92 87/51 L 08/03/18 22:00 26 H 08/03/18 20:00 100.6 F H 46 H 98 Weight Admit Weight 141.974 kg Weight 146.2 kg Most Recent Monitor Data Heart Rate from ECG 59 NIBP 101/47 NIBP BP-Mean 65 Respiration from ECG 16 SpO2 98 I&O: 08/02/18 08/03/18 08/04/18 06:59 06:59 06:59 Intake Total 4022 3752 4032.4 Output Total 2715 1300 1215 Balance 1307 2452 2817.4 Result Diagrams: 08/04/18 04:55 08/04/18 08:29 Phys Exam - Physical Examination sedated pupils not reactice Respiratory: clear to auscultation bilateral Cardiovascular: RRR, no significant murmur Gastrointestinal: soft, non-tender, positive bowel sounds Musculoskeletal: no edema, pulses present sedated Skin: no rash, cap refill <2 seconds Dx/Plan (1) Cardiac arrest Code(s): I46.9 - CARDIAC ARREST, CAUSE UNSPECIFIED Status: Acute (2) COPD (chronic obstructive pulmonary disease) Status: Acute (3) Alcohol abuse Code(s): F10.10 - ALCOHOL ABUSE, UNCOMPLICATED Status: Acute (4) Anaphylactic shock Code(s): T78.2XXA - ANAPHYLACTIC SHOCK, UNSPECIFIED, INITIAL ENCOUNTER Status : Acute (5) History of stroke Code(s): Z86.73 - PRSNL HX OF TIA (TIA), AND CEREB INFRC W/O RESID DEFICITS Status: Acute (6) Tobacco abuse Code(s): Z72.0 - TOBACCO USE Status: Acute - Plan Plan: This is a 58 yo M admitted for suspected anaphylactic shock and ROSC x2. Will have discussion with family about prognosis today on arrival. 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 stroke, possible anoxic brain injury 2/2 arrest x2) - Sedation: propofol, precedex - suspect PEA >7 min, ROSC x2 - Neurology consulted, appreciate recs - alpha waves noted on EKG, indeterminiate prognosis, advised 48-72 hours of supportive care - pinpoint pupils again this AM not reactive Resp (flash pulm edema 2/2 arrest, COPD, heavy tobacco abuse) - increased sedation 2/2 tachypnea - Vent settings: VC rate 24, fi02 50, peep 8, tv 500 - suspect adjustment in vent setting will improve oxygenation - 50+ pack-year tobacco abuse CV (anaphylactic shock 2/2 bee sting- resolved, hx of cardiac surgery, ROSC x2) - Pressors: none - Solumedrol, famotidine, benadryl - EF 50-55%, BNP 38 - s/p cooling protocol - LA 9.7-> 7.6 -> 3.5 GI (ETOH abuse, consider ETOH withdrawal) -12 pack of beer per day,on ativan 1mg q6 hrs -On pantoprazole -blood from NG tube has resolved /Renal (Suspect Diabetes insipidus) - U/O: 0.33 ml/kg/hr - urine na 83, urine osm 254, serum osm 298 - urine output decreased will monitor Infection (tachycardic-resolved, febrile, suspect PNA vs Cellulitus vs alcohol withdrawal) - atelectasis noted on CXR - Bcx x2 show NGTD at 48hrs -on doxycycline as patient has severe penicillin, he is on propofol drip so flouroquinolone is not great 2/2 qt prolongation Heme( thrombocytopenia) - plts trending down will check liver fxn studies Endo (see renal) Lines/Tubes: Intubated, R IJ CVC Code status: full PPx: famotidine Dispo: guarded Addendum - Attending - Attending Attestation Date/Time: 08/04/181904 I personally evaluated the patient and discussed the management with Dr. Christian Looney I agree with the History, Examination, Assessment and Plan documented above with any addition or exceptions noted below. continue update family on status and poor halfway prognosis. Patient family identifies Daughter as medical decision maker and can contact via phone.
[2018-08-04] MEDS: Lorazepam 2 MG/ML VIAL SLOW IVP PRN ×2 (07:22→14:22)
--- NOTE | 2018-08-04 07:48 | RAD ---
AP VIEW CHEST: HISTORY: Ventilator dependent patient. AP view chest demonstrates multiple lines and tubes in place not significantly changed. FINDINGS: There is suboptimal aeration of the lungs. Bilateral pleural effusions seen. Bibasilar areas of airspace opacities seen compatible with bibasilar pneumonia. The right and left he midiaphragm not clearly visualized compatible with effusion and bibasilar opacities. Radiographic appearance of the chest is stable. IMPRESSION: Bilateral pleural effusions and bibasilar airspace opacities compatible with pneumonia. Overall radio graphic appearance of the chest is stable. Lines and tubes unchanged. Transcribed Date/Time: 08/04/2018 8:52 AM
[2018-08-04 07:56] LABS: Actual Bicarbonate (HCO3a) 24.7 mEq/L (22-28); Base Excess (BEa) -0.3 mEq/L (-2.0 to +3.0); Calcium, Ionized 1.15 mmol/L (1.12-1.30); Carboxyhemoglobin (COHb) 1.2 gm% (0.0-3.0); Hemoglobin (Hb) 13.7 g/dL (14.0-18.0); O2 Tension (PaO2) 60.2 mmHg (80.0-100.0); Potassium - ABG Lab 3.75 mmol/L (3.70-5.30); pH, Arterial 7.39 (7.35-7.45)
[2018-08-04 08:05] LABS: Puncture Site RBRACH
[2018-08-04] MEDS ORDERED: Furosemide 40 MG/4 ML VIAL SLOW IVP SCH (08:30)
[2018-08-04 08:57] LABS: INR-International Normal Ratio 1.3; Prothrombin Time 15.9 SEC (12.0-14.7)
[2018-08-04 09:08] LABS: ALT (SGPT) 22 U/L (8-55); AST (SGOT) 68 U/L (5-34); Albumin 2.7 g/dL (3.5-5.0); Alkaline Phosphatase 49 U/L (40-150); Anion Gap 10 mmol/L (10-20); BUN (Urea Nitrogen) 21 mg/dL (8.4-25.7); Bilirubin, Total 0.9 mg/dL (0.2-1.2); Calc. Creatinine Clearance 231 mL/min (70-130); Carbon Dioxide 27 mmol/L (22-29); Chloride 105 mmol/L (98-107); Estimated GFR-MDRD Greater than 90; Glucose 169 mg/dL (70-105); Potassium 3.6 mmol/L (3.5-5.1); Protein, Total 5.7 g/dL (6.0-8.3); Sodium 138 mmol/L (136-145)
[2018-08-04] MEDS: Famotidine/PF 20 mg/2ml Vial SLOW IVP SCH ×2 (09:58→20:23)
[2018-08-04] MEDS: Enoxaparin Sodium 40 MG/0.4 ML SYRINGE SC SCH (09:58)
--- NOTE | 2018-08-04 11:34 | PRG ---
DATE OF SERVICE: 08/04/2018 SUBJECTIVE: Manuela is a 58-year-old gentleman, remains on Diprivan and tachypneic and tachycardic. OBJECTIVE: VITAL SIGNS: His pulse was 99. Sats are 94%, respirations 24 to 30 , blood pressure 101/60, afebrile. GENERAL: He is unresponsive. HEENT: Pupils are equal. CHEST: Rhonchi, crackles. CARDIAC: Sinus, tach. ABDOMEN: Soft. Platelet count is 42,000. White count 2.6, H and H 11 and 34. Trace edema. PO2 is 60, PCO2 43 ph7.42_ lytes are normal. Anoxic injury. X-ray shows pleural effusion, CHF. Underlying alcoholic liver disease with pancytopenia, COPD, morbid obesity. PLAN: Lasix will be initiated. Supportive care. Await the patient's son, will be arriving later on. Discuss with him ongoing care, prognosis etc., meantime supportive care, nutrition. One-half hour of critical time. Job ID: [id number] MTDD
--- NOTE | 2018-08-05 00:40 | PRG ---
DATE OF SERVICE: 08/04/2018 SUBJECTIVE: Mr. Roy remains on ventilatory support. Attempts to discontinue sedation, resulted in tachypnea. OBJECTIVE: On exam today, his corneal response is absent. His doll's head maneuver produced minimal if any deviation. His eyes remain deviated upward. His pain response is much weaker. He had no spontaneous eye opening and had no purposeful responses elicited. LABORATORY DATA: EEG showed a severely suppressed background. There are no epileptiform features associated with it. PLAN: I discussed the deterioration with multiple family members. They are not ready to discontinue support at this point, suggested that we continue to monitor him and supportive care for the time being. He may continue to progress into a brain state over the weekend. Job ID: [id number]
[2018-08-05] MEDS: Sodium Chloride 0.9% 1,000 ML IV SCH ×5 (02:26→19:46)
[2018-08-05] MEDS: Lorazepam 2 MG/ML VIAL SLOW IVP SCH ×4 (03:56→19:47)
[2018-08-05] MEDS: Propofol 1,000 MG/100 ML VIAL IV PRN ×6 (03:57→22:36)
[2018-08-05] MEDS: diphenhydrAMINE 50 MG/ML VIAL IVP SCH ×3 (05:59→21:06)
[2018-08-05] MEDS: methylPREDNISolone Sod Succ 40 MG VIAL IVP SCH ×2 (05:59→16:47)
--- NOTE | 2018-08-05 06:10 | PDOC.FM ---
- Subjective Subjective: No acute events overnight. Continue sedated. Dr. Saxena met with family overnight. EEG and Neurological exam declining. Large amount of family present would like to continue aggressive support through the weekend. Daughter is at a wedding in [place] and will return on Wednesday. - Objective Vital Signs & Weight: Vital Signs (12 hours) Temp Pulse Resp BP Pulse Ox 08/05/18 04:00 98.5 F 08/05/18 02:27 76 86/50 L 08/05/18 02:00 31 H 08/05/18 00:07 81 27 H 99 08/05/18 00:00 28 H 08/04/18 22:05 72 94/41 L 08/04/18 22:00 27 H 08/04/18 20:00 98.7 F 33 H 99 08/04/18 18:32 69 Weight Admit Weight 141.974 kg Weight 146.2 kg Most Recent Monitor Data Heart Rate from ECG 86 NIBP 106/47 NIBP BP-Mean 66 Respiration from ECG 32 SpO2 93 I&O: 08/03/18 08/04/18 08/05/18 06:59 06:59 06:59 Intake Total 3752 4032.4 1475.5 Output Total 1300 1215 3415 Balance 2452 2817.4 -1939.5 Result Diagrams: 08/05/18 05:55 08/05/18 05:55 Phys Exam - Physical Examination sedated pinpoint pupils, non-reactive, corneal reflex absent Respiratory: clear to auscultation bilateral Cardiovascular: RRR, no significant murmur Gastrointestinal: soft, non-tender, no distention, positive bowel sounds trace edema sedated Deviation from normal: sedated Deviation from normal: skin breakdown on L and R heels Dx/Plan (1) Cardiac arrest Code(s): I46.9 - CARDIAC ARREST, CAUSE UNSPECIFIED Status: Acute (2) COPD (chronic obstructive pulmonary disease) Status: Acute (3) Alcohol abuse Code(s): F10.10 - ALCOHOL ABUSE, UNCOMPLICATED Status: Acute (4) Anaphylactic shock Code(s): T78.2XXA - ANAPHYLACTIC SHOCK, UNSPECIFIED, INITIAL ENCOUNTER Status : Acute (5) History of stroke Code(s): Z86.73 - PRSNL HX OF TIA (TIA), AND CEREB INFRC W/O RESID DEFICITS Status: Acute (6) Tobacco abuse Code(s): Z72.0 - TOBACCO USE Status: Acute - Plan Plan: This is a 58 yo M admitted for suspected anaphylactic shock vs [place] leading to ROSC x2. Anoxic brain injury seems to be progressing throughout the week. Grave prognosis. Patient has an ex- and girlfriend. Family is deferring to daughter as main decision maker. Per girlfriend there is no advance directives. 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 - Expect to continue care through the weekend, suspect patient would pass quickly upon withdrawal of care Resp (flash pulm edema 2/2 arrest-resolved, COPD, heavy tobacco abuse) - increased sedation 2/2 tachypnic events - 50+ pack-year tobacco abuse - suspect decreased central resp drive CV (anaphylactic shock 2/2 bee sting- resolved, hx of cardiac surgery, ROSC x2) - Pressors: none - Solumedrol, famotidine, benadryl - EF 50-55%, BNP 38 - s/p cooling protocol - LA 9.7-> 7.6 -> 3.5 GI (ETOH abuse, consider ETOH withdrawal) -12 pack of beer per day,on ativan 1mg q6 hrs -On pantoprazole -blood from NG tube has resolved /Renal (Suspect Diabetes insipidus- resolved) Infection (tachycardic-resolved, febrile-resolved, suspect PNA vs Cellulitus vs alcohol withdrawal) - atelectasis noted on CXR - Bcx x2 show NGTD at 48hrs -on doxycycline as patient has severe penicillin allergy, he is on propofol drip so flouroquinolone is not great 2/2 qt prolongation Heme( thrombocytopenia) - plts trending down, chronic, will follow Endo (see renal) Lines/Tubes: Intubated, R IJ CVC Code status: full, this has been discussed with family at length PPx: famotidine Dispo: beti Addendum - Attending - Attending Attestation Date/Time: 08/05/18 0803 I personally evaluated the patient and discussed the management with Dr. Remigio Looney I agree with the History, Examination, Assessment and Plan documented above with any addition or exceptions noted below. Patient with anoxic brain injury he remains intubated with absent corneal reflexes no purposeful response. Will continue observation appreciate recommendation of Critical Care and Neurology. FPC prognosis extremely poor and giving period of observation for family to process this. continue palliative pastoral care.
[2018-08-05 06:27] LABS: Anion Gap 10 mmol/L (10-20); BUN (Urea Nitrogen) 22 mg/dL (8.4-25.7); Calc. Creatinine Clearance 231 mL/min (70-130); Calcium 7.9 mg/dL (7.8-10.44); Carbon Dioxide 26 mmol/L (22-29); Chloride 107 mmol/L (98-107); Estimated GFR-MDRD Greater than 90; Glucose 129 mg/dL (70-105); Potassium 3.4 mmol/L (3.5-5.1); Sodium 140 mmol/L (136-145)
[2018-08-05 06:47] LABS: Mean Corpuscular HGB CONC 34.8 g/dL (32.0-36.0); Mean Corpuscular Hemoglobin 33.9 pg (27.0-31.0); Mean Corpuscular Volume 97.5 fL (78.0-98.0); Mean Platelet Volume 9.1 fL (7.4-10.4); Platelet Count 54 thou/uL (130-400); RBC Distribution Width 13.7 % (11.5-14.5); Red Blood Cell (RBC) Count 3.53 mill/uL (4.70-6.10); White Blood Cell (WBC) Count 4.1 thou/uL (4.8-10.8)
[2018-08-05 07:02] LABS: Actual Bicarbonate (HCO3a) 25.2 mEq/L (22-28); Base Excess (BEa) 2.1 mEq/L (-2.0 to +3.0); CO2 Tension 34.9 mmHg (35.0-45.0); Carboxyhemoglobin (COHb) 1.4 gm% (0.0-3.0); Hemoglobin (Hb) 15.1 g/dL (14.0-18.0); O2 Tension (PaO2) 72.9 mmHg (80.0-100.0); Potassium - ABG Lab 3.36 mmol/L (3.70-5.30); pH, Arterial 7.48 (7.35-7.45)
[2018-08-05 07:19] LABS: ALV-art Gradient 168.675 (0-20); Puncture Site RRA
[2018-08-05] MEDS: Famotidine/PF 20 mg/2ml Vial SLOW IVP SCH ×2 (08:04→19:46)
[2018-08-05] MEDS: Enoxaparin Sodium 40 MG/0.4 ML SYRINGE SC SCH (08:18)
--- NOTE | 2018-08-05 08:35 | PRG ---
DATE OF SERVICE: 08/05/2018 SUBJECTIVE: Soren Roy remains intubated in the vent on Diprivan. OBJECTIVE: VITAL SIGNS: His respiratory rate is anywhere from 20 to 30, blood pressure 102/55, pulse 77. Afebrile. His I's and O's have been ahead several days. CHEST: Decreased breath sounds. Minimal rhonchi. CARDIAC: Sinus tach. ABDOMEN: Distended. Soft. NEUROLOGICAL: Unresponsive. He is doing some decerebrate posturing. Pupils are 3 mm, upward gaze, reactive. LABORATORY DATA: PO2 72, pCO2 34%, pH 7.48 on rate of 14, and 40%. White count 4000. Lytes are normal. X-ray shows a right lower lung atelectatic area. BNP was only 79. IMPRESSION: 1. Bilateral bronchopneumonia, atelectasis, probably secondary to retained secretions, poor cough. 2. Underlying chronic obstructive pulmonary disease. 3. Morbid obesity. 4. Alcohol abuse. 5. Prolonged CPR, anoxic injury. I am told family wants to continue supportive care. Could avoid bronchoscopy at this time. Continue doxycycline. Continue neb treatments, steroids. Prognosis is grave. Job ID: [id number]
--- NOTE | 2018-08-05 08:53 | RAD ---
CHEST 1 VIEW: Date: 08/05/18 HISTORY: Dyspnea. Follow-up. COMPARISON: 08/04/18. FINDINGS: Cardiac silhouette remains predominantly obscured by right pleural fluid and dense infiltrate. Left b asilar infiltrate is less pronounced than on the previous study. Mediastinum is midline. Lines and tu bes appear unchanged in position. No evidence of pneumothorax. Left rib fracture is partially visuali zed. IMPRESSION: 1. Improved aeration of the left base. 2. Right basilar abnormalities and other findings are stable. POS: TPC
--- NOTE | 2018-08-05 10:06 | EEG ---
Referring Physician: Inés WELLS EEG # [id number] TEST TYPE: ROUTINE PORTABLE INPATIENT REPORT: AN EEG USING THE INTERNATIONAL TEN-TWENTY SYSTEM OF ELECTRODE PLACEMENT WAS PERFORMED. The background activity is severely suppressed. There is some intermittent activity that looks to be cortical in origin. Photic stimulation was unremarkable. No epileptiform features were present. IMPRESSION: THIS IS AN ABNORMAL STUDY FOR THE FINDINGS OF SEVERE SUPPRESSION OVER BOTH HEMISPHERES CONSISTENT WITH A DIFFUSE ENCEPHALOPATHIC PROCESS. 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
[2018-08-05] MEDS: Lorazepam 2 MG/ML VIAL SLOW IVP PRN (12:44)
[2018-08-06] MEDS: Propofol 1,000 MG/100 ML VIAL IV PRN ×8 (01:36→23:40)
[2018-08-06] MEDS: Lorazepam 2 MG/ML VIAL SLOW IVP SCH ×4 (02:10→21:24)
[2018-08-06 04:16] LABS: Hemoglobin 11.8 g/dL (14.0-18.0); Mean Corpuscular HGB CONC 34.6 g/dL (32.0-36.0); Mean Corpuscular Volume 98.3 fL (78.0-98.0); Mean Platelet Volume 9.6 fL (7.4-10.4); Platelet Count 54 thou/uL (130-400); RBC Distribution Width 13.9 % (11.5-14.5); Red Blood Cell (RBC) Count 3.48 mill/uL (4.70-6.10); White Blood Cell (WBC) Count 3.3 thou/uL (4.8-10.8)
[2018-08-06 04:25] LABS: Anion Gap 9 mmol/L (10-20); BUN (Urea Nitrogen) 21 mg/dL (8.4-25.7); Calc. Creatinine Clearance 253 mL/min (70-130); Calcium 7.9 mg/dL (7.8-10.44); Carbon Dioxide 27 mmol/L (22-29); Chloride 110 mmol/L (98-107); Estimated GFR-MDRD Greater than 90; Glucose 136 mg/dL (70-105); Potassium 3.7 mmol/L (3.5-5.1); Sodium 142 mmol/L (136-145)
[2018-08-06] MEDS: Lorazepam 2 MG/ML VIAL SLOW IVP PRN (04:27)
[2018-08-06] MEDS: Sodium Chloride 0.9% 1,000 ML IV SCH ×3 (04:29→18:16)
[2018-08-06] MEDS: diphenhydrAMINE 50 MG/ML VIAL IVP SCH ×3 (05:09→21:24)
[2018-08-06] MEDS: methylPREDNISolone Sod Succ 40 MG VIAL IVP SCH ×2 (05:09→18:13)
--- NOTE | 2018-08-06 06:04 | PDOC.FM ---
- Subjective Subjective: No acute events overnight. Propofol restarted because respiratory rate approached 50 persistently last night. Awaiting family decision regarding possible withdrawal of care, possibly tomorrow pending daughter's return from out of town. - Objective MAR Reviewed: Yes Vital Signs & Weight: Vital Signs (12 hours) Temp Pulse Resp BP Pulse Ox 08/06/18 04:00 22 H 08/06/18 03:19 84 08/06/18 03:00 98.1 F 08/06/18 02:00 19 08/06/18 00:00 14 08/05/18 23:26 66 138/67 08/05/18 23:25 100 08/05/18 23:00 98.8 F 08/05/18 22:00 14 08/05/18 20:00 23 H 08/05/18 19:27 100 08/05/18 19:00 98.5 F 08/05/18 18:29 68 100 Weight Admit Weight 141.974 kg Weight 147.2 kg Most Recent Monitor Data Heart Rate from ECG 67 NIBP 88/74 NIBP BP-Mean 78 Respiration from ECG 14 SpO2 99 I&O: 08/04/18 08/05/18 08/06/18 06:59 06:59 06:59 Intake Total 4032.4 2964.5 2831 Output Total 1215 3490 1700 Balance 2817.4 -525.5 1131 Result Diagrams: 08/06/18 03:55 08/06/18 03:55 Radiology Reviewed by me: Yes Phys Exam - Physical Examination Constitutional: NAD HEENT: sclera anicteric slightly dry MM, pupils non-reactive, no corneal reflex Neck: no JVD Respiratory: no wheezing, no rhonchi Cardiovascular: RRR, no significant murmur Gastrointestinal: no distention Musculoskeletal: no edema, pulses present DTRs 1+, no spontaneous eye opening, no corneal reflex, pupils non-reactive Skin: no rash, normal turgor Dx/Plan (1) Alcohol abuse Code(s): F10.10 - ALCOHOL ABUSE, UNCOMPLICATED Status: Acute (2) Anaphylactic shock Code(s): T78.2XXA - ANAPHYLACTIC SHOCK, UNSPECIFIED, INITIAL ENCOUNTER Status : Acute (3) COPD (chronic obstructive pulmonary disease) Status: Acute (4) Cardiac arrest Code(s): I46.9 - CARDIAC ARREST, CAUSE UNSPECIFIED Status: Acute (5) History of stroke Code(s): Z86.73 - PRSNL HX OF TIA (TIA), AND CEREB INFRC W/O RESID DEFICITS Status: Acute (6) Tobacco abuse Code(s): Z72.0 - TOBACCO USE Status: Acute - Plan Plan: This is a 58 yo M admitted for suspected anaphylactic shock vs ID leading to ROSC x2. Anoxic brain injury seems to have progressed throughout the week. Poor prognosis. Patient has an ex- and girlfriend. Family is deferring to daughter as main decision maker. Per girlfriend there are no advance directives. 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 - Expect to continue care through the weekend, suspect patient would pass quickly upon withdrawal of care Resp (flash pulm edema 2/2 arrest-resolved, COPD, heavy tobacco abuse) - increased sedation 2/2 tachypnic events - 50+ pack-year tobacco abuse - suspect decreased central resp drive CV (anaphylactic shock 2/2 bee sting- resolved, hx of cardiac surgery, ROSC x2) - Pressors: none - Solumedrol, famotidine, benadryl - EF 50-55%, BNP 38 - s/p cooling protocol - LA 9.7-> 7.6 -> 3.5 GI (ETOH abuse, consider ETOH withdrawal) -12 pack of beer per day,on ativan 1mg q6 hrs -On pantoprazole -blood from NG tube has resolved /Renal (Suspected Diabetes insipidus- resolved) Infection (tachycardic-resolved, febrile-resolved, suspect PNA vs Cellulitus vs alcohol withdrawal) - atelectasis noted on CXR - Bcx x2 show NGTD at 48hrs -on doxycycline as patient has severe penicillin allergy, he is on propofol drip so flouroquinolone is not great 2/2 qt prolongation Heme( thrombocytopenia) - plts trending down, chronic, will follow Endo (see renal) Lines/Tubes: Intubated, R IJ CVC Code status: full, this has been discussed with family at length PPx: famotidine, will d/c lovenox with persistent thrombocytopenia Dispo: poor
[2018-08-06 07:30] LABS: Actual Bicarbonate (HCO3a) 23.9 mEq/L (22-28); Base Excess (BEa) -0.1 mEq/L (-2.0 to +3.0); CO2 Tension 36.6 mmHg (35.0-45.0); Calcium, Ionized 1.13 mmol/L (1.12-1.30); Carboxyhemoglobin (COHb) 1.2 gm% (0.0-3.0); Hemoglobin (Hb) 11.5 g/dL (14.0-18.0); O2 Tension (PaO2) 77.7 mmHg (80.0-100.0); Potassium - ABG Lab 3.44 mmol/L (3.70-5.30); pH, Arterial 7.43 (7.35-7.45)
[2018-08-06 07:34] LABS: Puncture Site RRA
--- NOTE | 2018-08-06 08:02 | RAD ---
XR Chest 1 View Portable History: [Ventilated patient] Comparison: Radiograph prior day Findings: Endotracheal tube tip just below the level of the clavicles in good position. Enteric tube tip below diaphragm although without of field of view. Large layering bilateral pleural effusions. Moderate pulmonary edema. Heart size is enlarged. Impression: Similar examination of the chest.
[2018-08-06] MEDS: Famotidine/PF 20 mg/2ml Vial SLOW IVP SCH ×2 (08:53→21:24)
--- NOTE | 2018-08-06 20:37 | PRG ---
DATE OF SERVICE: 08/06/2018 SUBJECTIVE: Mr. Roy remains mechanically ventilated. OBJECTIVE: VITAL SIGNS: He is afebrile. Heart rate in the 60s and blood pressure 143/68. Intake and outputs, positive 1091. LUNGS: Clear anteriorly. HEART: Regular rhythm. ABDOMEN: Soft. EXTREMITIES: Without edema. He has had no meaningful neurological improvement. Chest x-ray is reviewed, is unchanged. LABORATORY DATA: White count 3.3, hemoglobin 11.8, platelets 54,000. Sodium 142, potassium 3.7, chloride 110, bicarb 27, BUN 21, creatinine 0.66. A pH 7.43, CO2 of 36, and pO2 of 77. He still has neurological breathing pattern. The respiratory rate in the 40s. His sedation is held. IMPRESSION: Status post cardiac arrest with significant neurological injury. We will continue supportive care. Apparently, there are no advance directives for this patient. Functional prognosis for any type recovery is extremely poor. We will continue to follow. CRITICAL CARE TIME: 30 minutes. Job ID: [id number]
[2018-08-07] MEDS: Lorazepam 2 MG/ML VIAL SLOW IVP SCH ×3 (02:53→20:51)
[2018-08-07] MEDS: Propofol 1,000 MG/100 ML VIAL IV PRN ×6 (02:53→20:50)
[2018-08-07] MEDS: Sodium Chloride 0.9% 1,000 ML IV SCH ×4 (02:54→20:59)
[2018-08-07 05:00] LABS: Hemoglobin 12.3 g/dL (14.0-18.0); Mean Corpuscular Hemoglobin 33.8 pg (27.0-31.0); Mean Corpuscular Volume 99.4 fL (78.0-98.0); Mean Platelet Volume 9.7 fL (7.4-10.4); Platelet Count 53 thou/uL (130-400); Red Blood Cell (RBC) Count 3.64 mill/uL (4.70-6.10)
[2018-08-07 05:10] LABS: Anion Gap 10 mmol/L (10-20); BUN (Urea Nitrogen) 19 mg/dL (8.4-25.7); Calc. Creatinine Clearance 270 mL/min (70-130); Carbon Dioxide 25 mmol/L (22-29); Chloride 110 mmol/L (98-107); Estimated GFR-MDRD Greater than 90; Glucose 143 mg/dL (70-105); Potassium 3.8 mmol/L (3.5-5.1); Sodium 141 mmol/L (136-145)
[2018-08-07] MEDS: diphenhydrAMINE 50 MG/ML VIAL IVP SCH ×3 (05:12→20:58)
[2018-08-07] MEDS: methylPREDNISolone Sod Succ 40 MG VIAL IVP SCH ×2 (05:12→17:05)
[2018-08-07 07:01] LABS: Actual Bicarbonate (HCO3a) 24.2 mEq/L (22-28); Base Excess (BEa) -0.8 mEq/L (-2.0 to +3.0); CO2 Tension 41.5 mmHg (35.0-45.0); Calcium, Ionized 1.19 mmol/L (1.12-1.30); Carboxyhemoglobin (COHb) 1.1 gm% (0.0-3.0); Hemoglobin (Hb) 12.3 g/dL (14.0-18.0); O2 Tension (PaO2) 82.4 mmHg (80.0-100.0); Potassium - ABG Lab 3.78 mmol/L (3.70-5.30); Puncture Site RRA; pH, Arterial 7.38 (7.35-7.45)
--- NOTE | 2018-08-07 07:01 | PDOC.FM ---
- Subjective Subjective: No acute events overnight. Per nursing, daughter is back in down. Family desires to wait until Wednesday for Dr. Saxena's recommendations and possible final EEG. - Objective MAR Reviewed: Yes Vital Signs & Weight: Vital Signs (12 hours) Temp Pulse Resp BP Pulse Ox 08/07/18 06:51 53 L 143/69 H 08/07/18 06:49 56 L 14 99 08/07/18 06:00 16 08/07/18 04:00 18 08/07/18 03:13 57 L 08/07/18 03:00 97.4 F L 08/07/18 02:00 16 08/07/18 00:00 18 08/06/18 23:00 98 F 08/06/18 22:43 60 146/69 H 08/06/18 22:00 20 08/06/18 20:00 20 98 Weight Admit Weight 141.974 kg Weight 147.446 kg Most Recent Monitor Data Heart Rate from ECG 56 NIBP 143/69 NIBP BP-Mean 93 Respiration from ECG 14 SpO2 100 I&O: 08/06/18 08/07/18 08/08/18 06:59 06:59 06:59 Intake Total 2831 2949 Output Total 1740 1740 Balance 1091 1209 Result Diagrams: 08/07/18 04:15 08/07/18 04:15 Phys Exam - Physical Examination Constitutional: NAD HEENT: PERRLA, sclera anicteric Neck: no JVD Respiratory: no wheezing, no rhonchi, clear to auscultation bilateral Cardiovascular: RRR, no significant murmur Gastrointestinal: soft, non-tender, positive bowel sounds (hypoactive) Musculoskeletal: no edema, pulses present Neurological: non-focal, moves all 4 limbs Psychiatric: normal affect, A&O x 3 Skin: no rash, normal turgor, cap refill <2 seconds Dx/Plan (1) Alcohol abuse Code(s): F10.10 - ALCOHOL ABUSE, UNCOMPLICATED Status: Acute (2) Anaphylactic shock Code(s): T78.2XXA - ANAPHYLACTIC SHOCK, UNSPECIFIED, INITIAL ENCOUNTER Status : Acute (3) COPD (chronic obstructive pulmonary disease) Status: Acute (4) Cardiac arrest Code(s): I46.9 - CARDIAC ARREST, CAUSE UNSPECIFIED Status: Acute (5) History of stroke Code(s): Z86.73 - PRSNL HX OF TIA (TIA), AND CEREB INFRC W/O RESID DEFICITS Status: Acute (6) Tobacco abuse Code(s): Z72.0 - TOBACCO USE Status: Acute - Plan Plan: This is a 58 yo M admitted for suspected anaphylactic shock vs MS leading to ROSC x2. Anoxic brain injury seems to have progressed throughout the week. Poor prognosis. Patient has an ex- and girlfriend. Family is deferring to daughter as main decision maker. Per girlfriend there are no advance directives. 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 PRACTICING UROLOGIST (hx of stroke, anoxic brain injury 2/2 arrest x2) - Sedation: propofol, scheduled ativan 2/2 tachypnea - suspect PEA >7 min, ROSC x2 - Neurology consulted, appreciate recs - alpha waves noted on first EEG, 2nd EEG appears to be worsening - Neurological exam stable - Expect to continue care through the weekend, suspect patient would pass quickly upon withdrawal of care Resp (flash pulm edema 2/2 arrest-resolved, COPD, heavy tobacco abuse) - requiring sedation 2/2 tachypneic events - 50+ pack-year tobacco abuse - suspect decreased central resp drive CV (anaphylactic shock 2/2 bee sting- resolved, hx of cardiac surgery, ROSC x2) - Pressors: none - Solumedrol, famotidine, benadryl - EF 50-55%, BNP 38 - s/p cooling protocol - LA 9.7-> 7.6 -> 3.5 GI (ETOH abuse, consider ETOH withdrawal) - 12 pack of beer per day, on ativan 1mg q6 hrs - On pantoprazole - blood from NG tube has resolved, will try resuming feeds today (has had high residuals) - no BM since admission /Renal (Suspected Diabetes insipidus- resolved) Infection (tachycardic-resolved, febrile-resolved, suspect PNA vs Cellulitus vs alcohol withdrawal) - atelectasis noted on CXR - Bcx x2 show NGTD at 48hrs - on doxycycline as patient has severe penicillin allergy, he is on propofol drip so flouroquinolone is not great 2/2 qt prolongation Heme (thrombocytopenia) - plts trending down, chronic, will follow Endo (see renal) Lines/Tubes: Intubated, L IJ CVC (08/04), pink Code status: full, this has been discussed with family at length PPx: famotidine, d/c'd lovenox with persistent thrombocytopenia Dispo: poor
[2018-08-07 07:02] LABS: ALV-art Gradient 150.925 (0-20)
[2018-08-07] MEDS: Famotidine/PF 20 mg/2ml Vial SLOW IVP SCH ×2 (08:51→20:51)
--- NOTE | 2018-08-07 13:35 | PRG ---
DATE OF SERVICE: 08/07/2018 TRANSITION OF CARE NOTE. SUBJECTIVE: This is a 58-year-old gentleman, who was brought in by EMS after being found unresponsive. He was at his home and went outside for a smoke. He got stung by a bee and his girlfriend removed the stinger. He sat down and then after an unknown period of time, possibly 15 minutes to an hour, the found him having increased difficulty breathing and decided to bring him into the hospital. On the way to the hospital, he became unresponsive, and an ambulance met them on the way to the hospital. When the EMS crew arrived, he was in arrest and CPR was started. ROSC was achieved by the time he reached the hospital. The [facility]. During this transition, he did once again go into arrest and CPR was initiated. ROSC was once again achieved. The time of arrest was thought to be greater than 7 minutes. The cause of the arrest is thought to be either anaphylactic reaction due to the bee sting or possibly an NM secondary to the delay from bee sting to arrest. The patient has been sickly before this admission. He previously had eight month hospital admission in [place] following complications of a cervical neck surgery. He was intubated for quite some time during that hospitalization. After going home, he has been walking with a walker. Initially, the patient was treated for flash pulmonary edema secondary to the arrest. He also has a history of COPD and heavy tobacco abuse. He was on an epi drip when he was first admitted until the symptoms resolved. He also has a history of being a 12 to 18 beers per day drinker and was started on Ativan. During the first couple of days after admission, he had a large amount of urine output and so it was thought that he could have diabetes insipidus secondary to anoxic injury, but this did resolve on its own and sodiums trended normal. During the course of the week, the patient did spike a fever. This is thought to be possibly due to a pneumonia versus a cellulitis from his open wound on the left amado. He was started on doxycycline as this would cover some of the sources for both and he has a penicillin allergy and he was on propofol for sedation, which is a QT prolongation. The patient's condition worsened throughout the week. He had one EEG which showed alpha waves, which are not promising, 24 to 48 hours out from an arrest, but still put him in a dior zone per Neurology. A second EEG was completed on August 05Wednesday, which did not look improved per Neurology. The family is weighing heavily on Neurology input going forward. This patient's prognosis is very poor. He has had pinpoint pupils. No corneal response and has been getting tachypneic when sedation is removed. It was felt that he may pass quickly once extubated at this point in time. Family is requesting another EEG on Wednesday per review of records. Job ID: [id number]
--- NOTE | 2018-08-07 21:10 | PRG ---
DATE OF SERVICE: 08/07/2018 SUBJECTIVE: Mr. Roy has not improved neurologically at all. If his sedation is decreased, he kicks his respiratory rate up into the 40s still. His intake and output positive at 1209. OBJECTIVE: VITAL SIGNS: Heart rates in the 60s, blood pressure 143/70, respiratory rates in the teens. LABORATORY DATA: White count is 3.0, hemoglobin 12.3, platelets 53,000. Sodium 141, potassium 3.8, chloride 110, bicarb 25, BUN 19, and creatinine 0.62. PH 7.38, CO2 of 41, PO2 of 82. IMPRESSION: Respiratory failure. Family wants to continue to be aggressive and he will need a tracheostomy this week. Really has not improved much overall. We will continue with supportive care. Critical care time is 35 minutes. Job ID: [id number] MTDD
[2018-08-08] MEDS: Propofol 1,000 MG/100 ML VIAL IV PRN ×2 (00:43→04:44)
[2018-08-08 04:59] LABS: Hemoglobin 12.3 g/dL (14.0-18.0); Mean Corpuscular HGB CONC 33.7 g/dL (32.0-36.0); Mean Corpuscular Hemoglobin 33.5 pg (27.0-31.0); Mean Corpuscular Volume 99.3 fL (78.0-98.0); Mean Platelet Volume 9.8 fL (7.4-10.4); Platelet Count 60 thou/uL (130-400); RBC Distribution Width 14.2 % (11.5-14.5); Red Blood Cell (RBC) Count 3.66 mill/uL (4.70-6.10); White Blood Cell (WBC) Count 4.1 thou/uL (4.8-10.8)
[2018-08-08] MEDS: methylPREDNISolone Sod Succ 40 MG VIAL IVP SCH ×2 (05:05→19:42)
[2018-08-08] MEDS: diphenhydrAMINE 50 MG/ML VIAL IVP SCH ×3 (05:05→22:31)
[2018-08-08 05:23] LABS: Anion Gap 11 mmol/L (10-20); BUN (Urea Nitrogen) 22 mg/dL (8.4-25.7); Calc. Creatinine Clearance 267 mL/min (70-130); Carbon Dioxide 22 mmol/L (22-29); Chloride 111 mmol/L (98-107); Estimated GFR-MDRD Greater than 90; Glucose 139 mg/dL (70-105); Potassium 3.8 mmol/L (3.5-5.1); Sodium 140 mmol/L (136-145)
--- NOTE | 2018-08-08 05:55 | PDOC.FM ---
- Subjective Subjective: 58 yo male seen at bedside this AM. Patient has been unresponsive and is also intubated and sedated. Per nursing staff, patient does not withdraw from pain or make any spontaneous movements. He does have a cough and gag reflex. No acute events overnight. - Objective Vital Signs & Weight: Vital Signs (12 hours) Temp Pulse Resp BP Pulse Ox 08/08/18 04:00 24 H 08/08/18 03:50 72 08/08/18 02:00 98.2 F 22 H 08/08/18 00:00 22 H 08/07/18 23:03 65 140/61 08/07/18 23:00 98.8 F 08/07/18 22:00 21 H 08/07/18 20:00 18 100 08/07/18 19:00 98.4 F 08/07/18 18:45 64 100 Weight Admit Weight 141.974 kg Weight 147.446 kg Most Recent Monitor Data Heart Rate from ECG 74 NIBP 149/63 NIBP BP-Mean 91 Respiration from ECG 26 SpO2 100 I&O: 08/06/18 08/07/18 08/08/18 06:59 06:59 06:59 Intake Total 2831 2949 1694 Output Total 1740 1740 1325 Balance 1091 1209 369 Result Diagrams: 08/08/18 04:35 08/08/18 04:35 Phys Exam - Physical Examination Constitutional: NAD Respiratory: no wheezing, clear to auscultation bilateral Cardiovascular: RRR, no significant murmur Gastrointestinal: soft, non-tender, no distention, positive bowel sounds No withdrawal from pain. Intubated and sedated Deviation from normal: intubated and sedated Dx/Plan (1) Anoxic brain damage Status: Acute (2) Cardiac arrest Code(s): I46.9 - CARDIAC ARREST, CAUSE UNSPECIFIED Status: Resolved (3) Anaphylactic shock Code(s): T78.2XXA - ANAPHYLACTIC SHOCK, UNSPECIFIED, INITIAL ENCOUNTER Status : Resolved (4) Alcohol abuse Code(s): F10.10 - ALCOHOL ABUSE, UNCOMPLICATED Status: Chronic (5) COPD (chronic obstructive pulmonary disease) Status: Chronic (6) History of stroke Code(s): Z86.73 - PRSNL HX OF TIA (TIA), AND CEREB INFRC W/O RESID DEFICITS Status: Chronic (7) Tobacco abuse Code(s): Z72.0 - TOBACCO USE Status: Chronic - Plan Plan: 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 MAINTENANCE TECH (hx of stroke, anoxic brain injury 2/2 arrest x2) - Sedation: propofol, scheduled ativan 2/2 tachypnea - suspect PEA >7 min, ROSC x2 - Neurology consulted, appreciate recs - alpha waves noted on first EEG, 2nd EEG appears to be worsening - Neurological exam stable - Per review of records, family requests neuro consultation and EEG today 08/08 Resp (flash pulm edema 2/2 arrest-resolved, COPD, heavy tobacco abuse) - Mechanical ventilation - requiring sedation 2/2 tachypneic events - 50+ pack-year tobacco abuse - suspect decreased central resp drive - Per Pulmonology, tracheostomy this week if pursuing aggressive treatment. CV (anaphylactic shock 2/2 bee sting- resolved, hx of cardiac surgery, ROSC x2) - Pressors: none - Solumedrol, famotidine, benadryl - EF 50-55%, BNP 38 - s/p cooling protocol - LA 9.7-> 7.6 -> 3.5 GI (ETOH abuse, consider ETOH withdrawal) - 12 pack of beer per day, on ativan 1mg q6 hrs - On pantoprazole - blood from NG tube has resolved, will try resuming feeds today (has had high residuals) - no BM since admission /Renal (Suspected Diabetes insipidus- resolved) Infection (tachycardic-resolved, febrile-resolved, suspect PNA vs Cellulitus vs alcohol withdrawal) - atelectasis noted on CXR - Bcx x2 show NGTD at 48hrs - Continue antibiotics Heme (thrombocytopenia) - plts trending down, chronic, will follow - Stable at 60 this AM Endo (see renal) Lines/Tubes: Intubated, L IJ CVC (08/04), pink Code status: full, this has been discussed with family at length PPx: famotidine, d/c'd lovenox with persistent thrombocytopenia Disposition: Poor, will continue current plan of care and coordinate specialty teams
[2018-08-08 06:51] LABS: Actual Bicarbonate (HCO3a) 21.1 mEq/L (22-28); CO2 Tension 34.4 mmHg (35.0-45.0); Carboxyhemoglobin (COHb) 1.1 gm% (0.0-3.0); Hemoglobin (Hb) 12.5 g/dL (14.0-18.0); O2 Tension (PaO2) 76.5 mmHg (80.0-100.0); Potassium - ABG Lab 3.77 mmol/L (3.70-5.30); Puncture Site RRA; pH, Arterial 7.41 (7.35-7.45)
[2018-08-08] MEDS: Lorazepam 2 MG/ML VIAL SLOW IVP SCH ×2 (08:08→20:31)
[2018-08-08] MEDS: Famotidine/PF 20 mg/2ml Vial SLOW IVP SCH ×2 (08:08→20:31)
--- NOTE | 2018-08-08 08:49 | PRG ---
DATE OF SERVICE: 08/08/2018 SUBJECTIVE: This morning, the patient is intubated on the vent, on Diprivan. OBJECTIVE: VITAL SIGNS: Respiratory drive rate of 40, pulse 79, saturations are 95%, and blood pressure 149/61. GENERAL: Still remains unresponsive. HEENT: Pupils are dilated. CHEST: Decreased breath sounds. No wheezing. There are some rhonchi. CARDIAC: Sinus tach. ABDOMEN: Distended. EXTREMITIES: Trace edema. LABORATORY DATA: White count 4000, H and H of 12 and 36, and platelet count of 60. Gases; pO2 is 76, pCO2 is 34, pH is 7.41 on 40%, PEEP of 6. Lytes are normal. IMPRESSION: 1. Anoxic injury. 2. Status post cardiopulmonary arrest. 3. Underlying chronic obstructive pulmonary disease. 4. Underlying severe liver disease. 5. Alcohol abuse. 6. Underlying sleep apnea. Family is to once again talk with Neurology today regarding ongoing issues. He is not weanable. Try and cut back his Diprivan. Obviously, his respiratory drive is set at 50 and to re-sedate the gentleman. If family wants to continue all present care options, would be to do trach and PEG as per their wishes. One-half hour of critical care time. Job ID: [id number]
[2018-08-08] MEDS: Sodium Chloride 0.9% 1,000 ML IV SCH ×4 (10:21→20:35)
--- NOTE | 2018-08-08 12:50 | PRG ---
DATE OF SERVICE: 08/07/2018 ADDENDUM: Please see the note from Dr. Garland for which I agree. The patient was seen, evaluated, discussed, and examined with the residents by the bedside. This is a 58-year-old gentleman who is still on the ventilator in the ICU after bee sting led to cardiac arrest and unfortunately seems to be dealing with likely a major anoxic brain injury. I am certainly appreciating Neurology's involvement on the patient, and family is involved, and we were trying to basically discuss long-term prognosis with them and long-term directives from them. For a while there, he could not tolerate tube feeds, we will probably restart that today. We are trying to wean the benzodiazepines, although any time we wean the propofol, he seems to get very tachypneic, but otherwise he has supportive care on the ventilator in the meantime. We will see what family decides as far as possibly considering extubation. Either way unfortunately extremely grave prognosis. Job ID: [id number]
--- NOTE | 2018-08-08 15:51 | PRG ---
DATE OF SERVICE: ADDENDUM: Please see the note from Dr. Garland, for which I agree. The patient was seen, evaluated, and discussed with the residents by bedside. This is a very unfortunate 58-year-old gentleman, who basically had cardiac arrest after a bee sting and likely a prolonged anoxic injury to the brain. It seems like neurology's note, they are assuming that the brain function with time seems to be getting worse and has an extremely grave prognosis neurologically. We are waiting on daughter to come back in town to potentially help us decide what the next move is. He is on ventilator, and when we wean sedation, he is not doing any purposeful movements, but does get extremely tachypneic, so we kept him on the propofol. On exam today, chest is coarse throughout. No obvious neurologic improvement. He does not seem to be responding to pain, sound or anything. Pupils do react to light. No other major changes in his state and so we will see what the daughter says as far as potentially considering terminal extubation because of the severe neurologic deficit from a prolonged anoxic injury. Job ID: [id number]
--- NOTE | 2018-08-08 15:56 | PRG ---
DATE OF SERVICE: ADDENDUM: This is an addendum to the note of Dr. Kana Oliva. Mr. Roy is a very unfortunate 58-year-old man, who sustained anoxic injury secondary to prolonged cardiac arrest following an anaphylactic reaction to bee sting. He is still comatose on a ventilator. The family is awaiting input from Neurology, after which time a decision will be made regarding his long-term care, which should be a trach and PEG. His overall prognosis is poor. Job ID: [id number]
[2018-08-09 03:52] LABS: Hemoglobin 11.7 g/dL (14.0-18.0); Mean Corpuscular HGB CONC 33.4 g/dL (32.0-36.0); Mean Corpuscular Hemoglobin 33.2 pg (27.0-31.0); Mean Corpuscular Volume 99.5 fL (78.0-98.0); Mean Platelet Volume 9.5 fL (7.4-10.4); Platelet Count 52 thou/uL (130-400); RBC Distribution Width 14.3 % (11.5-14.5); Red Blood Cell (RBC) Count 3.53 mill/uL (4.70-6.10); White Blood Cell (WBC) Count 4.2 thou/uL (4.8-10.8)
[2018-08-09 04:10] LABS: Anion Gap 8 mmol/L (10-20); BUN (Urea Nitrogen) 20 mg/dL (8.4-25.7); Calc. Creatinine Clearance 262 mL/min (70-130); Calcium 7.6 mg/dL (7.8-10.44); Carbon Dioxide 23 mmol/L (22-29); Chloride 115 mmol/L (98-107); Estimated GFR-MDRD Greater than 90; Glucose 173 mg/dL (70-105); Potassium 3.7 mmol/L (3.5-5.1); Sodium 142 mmol/L (136-145)
[2018-08-09] MEDS: methylPREDNISolone Sod Succ 40 MG VIAL IVP SCH (05:18)
[2018-08-09] MEDS: diphenhydrAMINE 50 MG/ML VIAL IVP SCH ×2 (05:20→14:54)
[2018-08-09] MEDS: Sodium Chloride 0.9% 1,000 ML IV SCH (05:21)
[2018-08-09 05:34] VITALS: BMI 41.6
--- NOTE | 2018-08-09 05:52 | PDOC.FM ---
- Subjective Subjective: 58 yo male seen at bedside this AM. Patient is off sedation and unresponsive. Per nursing staff, no acute events overnight. Patient has EEG scheduled for this AM. - Objective Vital Signs & Weight: Vital Signs (12 hours) Temp Pulse Resp BP Pulse Ox 08/09/18 04:08 76 147/76 H 08/09/18 04:00 99.5 F 08/09/18 00:00 99.0 F 08/08/18 23:02 85 08/08/18 23:01 94 L 08/08/18 22:00 23 H 08/08/18 20:00 99.3 F 32 H 95 08/08/18 19:08 85 138/71 Weight Admit Weight 141.974 kg Weight 151.182 kg Most Recent Monitor Data Heart Rate from ECG 82 NIBP 148/77 NIBP BP-Mean 100 Respiration from ECG 25 SpO2 99 I&O: 08/07/18 08/08/18 08/09/18 06:59 06:59 06:59 Intake Total 2949 3687 3543 Output Total 1740 1430 1885 Balance 1209 2257 1658 Result Diagrams: 08/09/18 03:38 08/09/18 03:38 Phys Exam - Physical Examination Reactive pupils with upward gaze. ET in place Respiratory: no wheezing, clear to auscultation bilateral Cardiovascular: RRR, no significant murmur Gastrointestinal: soft, positive bowel sounds Musculoskeletal: no edema, pulses present Deviation from normal: intubated Dx/Plan (1) Anoxic brain damage Status: Acute (2) Cardiac arrest Code(s): I46.9 - CARDIAC ARREST, CAUSE UNSPECIFIED Status: Resolved (3) Anaphylactic shock Code(s): T78.2XXA - ANAPHYLACTIC SHOCK, UNSPECIFIED, INITIAL ENCOUNTER Status : Resolved (4) Alcohol abuse Code(s): F10.10 - ALCOHOL ABUSE, UNCOMPLICATED Status: Chronic (5) COPD (chronic obstructive pulmonary disease) Status: Chronic (6) History of stroke Code(s): Z86.73 - PRSNL HX OF TIA (TIA), AND CEREB INFRC W/O RESID DEFICITS Status: Chronic (7) Tobacco abuse Code(s): Z72.0 - TOBACCO USE Status: Chronic - Plan Plan: 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 (hx of stroke, anoxic brain injury 2/2 arrest x2) - Sedation: scheduled ativan 2/2 tachypnea - suspect PEA >7 min, ROSC x2 - Neurology consulted, appreciate recs - alpha waves noted on first EEG, 2nd EEG appears to be worsening - Neurological exam stable - Per review of records, family to make treatment decision today after EEG 08/09 Resp (flash pulm edema 2/2 arrest-resolved, COPD, heavy tobacco abuse) - Mechanical ventilation - requiring sedation 2/2 tachypneic events - 50+ pack-year tobacco abuse - suspect decreased central resp drive - Per Pulmonology, tracheostomy this week if pursuing aggressive treatment. CV (anaphylactic shock 2/2 bee sting- resolved, hx of cardiac surgery, ROSC x2) - Pressors: none - Solumedrol, famotidine, benadryl - EF 50-55%, BNP 38 - s/p cooling protocol GI (ETOH abuse, consider ETOH withdrawal) - 12 pack of beer per day, on ativan 1mg q6 hrs - On pantoprazole - blood from NG tube has resolved, tolerating tube feeds well - Increase free water feeds due to elevated Cl - no BM since admission, added regimen /Renal (Suspected Diabetes insipidus- resolved) Infection (tachycardic-resolved, febrile-resolved, suspect PNA vs Cellulitus vs alcohol withdrawal) - atelectasis noted on CXR - Bcx x2 show NGTD at 48hrs - Continue antibiotics Heme (thrombocytopenia) - plts trending down, chronic, will follow - Stable at 52 this AM Endo (see renal) Lines/Tubes: Intubated, L IJ CVC (08/04), pink Code status: full, this has been discussed with family at length PPx: famotidine, d/c'd lovenox with persistent thrombocytopenia Disposition: Poor, will continue current plan of care and coordinate specialty teams Addendum - Attending - Attending Attestation Date/Time: 08/09/18 1002 I personally evaluated the patient and discussed the management with Dr. Oliva. I agree with the History, Examination, Assessment and Plan documented above with any addition or exceptions noted below. Patient with likely devastating anoxic brain injury. Poor prognosis. D/c MIVF if we are tube feeding. Pancyopenic and will need workup pending prognosis. Lung protective ventilation. Pull CVC and obtain peripheral access. SCDs, GI ppx.
[2018-08-09 06:56] LABS: Actual Bicarbonate (HCO3a) 21.9 mEq/L (22-28); Base Excess (BEa) -1.2 mEq/L (-2.0 to +3.0); CO2 Tension 31.6 mmHg (35.0-45.0); Calcium, Ionized 1.19 mmol/L (1.12-1.30); Carboxyhemoglobin (COHb) 0.8 gm% (0.0-3.0); Hemoglobin (Hb) 12.6 g/dL (14.0-18.0); O2 Tension (PaO2) 71.2 mmHg (80.0-100.0); Potassium - ABG Lab 3.83 mmol/L (3.70-5.30); pH, Arterial 7.46 (7.35-7.45)
[2018-08-09 07:28] LABS: Puncture Site RRA
[2018-08-09] MEDS: Lorazepam 2 MG/ML VIAL SLOW IVP SCH (08:10)
[2018-08-09] MEDS: Famotidine/PF 20 mg/2ml Vial SLOW IVP SCH (08:10)
--- NOTE | 2018-08-09 08:28 | PRG ---
DATE OF SERVICE: 08/09/2018 SUBJECTIVE: This morning, remains unresponsive. No sedation. He was getting scheduled Ativan, which was discontinued. OBJECTIVE: VITAL SIGNS: His sats are 98%, blood pressure 150/70, pulse 80, respirations 30. CHEST: Anterior rhonchi. CARDIAC: Sinus tach. ABDOMEN: Soft. NEUROLOGICAL: Unresponsive. Pupils are 3 mm. LABORATORY DATA: Lytes are normal. PO2 71, pCO2 31, pH 7.46, 40%, rate of 10. White count 4000. IMPRESSION: 1. Anoxic brain injury, status post cardiopulmonary arrest. 2. Alcohol abuse. 3. Morbid obesity, probably sleep apnea. The scheduled Ativan was discontinued. Decrease steroids. Neb treatments, supportive care, nutrition. Awaiting input from Neurology. One-half hour of critical care time. Job ID: [id number]
[2018-08-09] MEDS ORDERED: methylPREDNISolone Sod Succ 40 MG VIAL IVP SCH (09:00)
[2018-08-09] MEDS ORDERED: Polyethylene Glycol 3350 17 GM Packet PER TUBE SCH (09:00)
--- NOTE | 2018-08-09 12:51 | PDOC.EVN ---
Event Note - Event Note Event Note: Spoke with patient's daughter, Baltazar, son, and girlfriend during family meeting. Discussed possible treatment options and plan going forward. Explained process of tracheostomy with peg tube placement and terminal extubation. Also counseled on overall very poor prognosis and low likelihood of functional return to baseline. Family is wanting to discuss case with Dr. Saxena after EEG completed this AM. All questions answered at time of meeting and will be available for future conversations as needed.
[2018-08-09 14:33] VITALS: BP 140/76
[2018-08-09 16:20] VITALS: TEMP 99.3
[2018-08-09] MEDS ORDERED: Morphine 4 MG/ML VIAL SLOW IVP PRN (17:33)
--- NOTE | 2018-08-09 17:36 | PDOC.EVN ---
Event Note - Event Note Event Note: Received call that family has decided to withdraw care for patient. Family spoke with Dr. Saxena and made joint decision. Will discontinue all medications other than ativan and morphine. Will discontinue all lab draws. Night team notified. All questions answered to family. Dr. Choudhury in agreement with plan.
--- NOTE | 2018-08-09 17:52 | PRG ---
DATE OF SERVICE: 08/09/2018 Mr. Roy remains on ventilatory support. Continues to display respiratory drive. He also has a gag response and truncal pain response. His EEG showed severe slowing and suppression with some residual intermittent theta activity. The patient appears to be headed towards chronic vegetative state. I will discuss the prognosis with the family, I do not have anything further. Job ID: [id number]
[2018-08-09] MEDS: Lorazepam 2 MG/ML VIAL SLOW IVP PRN (18:14)
[2018-08-09] MEDS: Morphine 4 MG/ML VIAL SLOW IVP PRN ×2 (19:53→20:55)
--- NOTE | 2018-08-10 10:10 | DIS ---
DATE OF ADMISSION: 07/31/2018 DATE OF DISCHARGE: 08/09/2018 SUMMARY: ATTENDING PHYSICIAN: Dr. Servando Choudhury. RESIDENT: Joan Jarvis MD. DATE OF : 08/09/2018. TIME OF : 20:59. CAUSE OF : Anoxic brain injury secondary to cardiopulmonary arrest x2 from anaphylactic shock. SECONDARY DIAGNOSES: 1. Chronic obstructive pulmonary disease. 2. History of tobacco abuse. 3. History of alcohol abuse. HOSPITAL COURSE: The patient was a 58-year-old gentleman with a past medical history significant for COPD and heavy alcohol and tobacco use who was brought to the [facility] via EMS after suffering anaphylactic shock status post a bee sting earlier on the date of presentation. The patient patient became unresponsive & was ROSC was achieved x2 with IV Epi en route to the ED. On arrival, the patient was already intubated and noted to be significantly hypotensive. He was therefore started on an epinephrine drip prior to being transferred to the critical care unit for further management and close monitoring. The patient was continued on the epi drip for pressure support as well as IV steroids and antihistamines in the CCU, all of which were weaned as tolerated by the patient. He was followed closely by both Pulmonology/Critical care and Neurology for the duration of his hospital stay required additional sedation periodically for tachypnea and agitation but never regained consciousness. On hospital day #3, the patient had an EEG which was read and interpreted by Neurology who noted alpha waveforms and the patient was given an indeterminate prognosis at that point. Family was advised to wait at least 48 to 72 hours before making the final assessment as to whether or not the patient would regain consciousness. After 48 hours of close monitoring, Neurology discussed the patient's continued neurologic decline with family members who were not yet ready to discontinue support. He had 2 subsequent EEGs during his hospital stay with the last one indicating that the patient was progressing towards a chronic vegetative state. After these findings were shared with family, the decision was made to withdraw care at approximately 17:35 on 08/09/18. At approximately 20:59 on 08/09/18, the primary team was notified by nursing staff of the patient's passing. Job ID: [id number] MTDD
--- NOTE | 2018-08-10 10:35 | EEG ---
Referring Physician: Inés WELLS EEG # [id number] TEST TYPE: ROUTINE PORTABLE INPATIENT REPORT: AN EEG USING THE [employer]NATIONAL TEN-TWENTY SYSTEM OF ELECTRODE PLACEMENT WAS PERFORMED. The best background rhythm is a low amplitude 5 hertz Theta which is intermittent in nature. The background activity is generally suppressed. Photic stimulation was unremarkable. No epileptiform features were present. IMPRESSION: THIS IS AN ABNORMAL EEG FOR THE FINDINGS OF SLOWING AND SUPPRESSION OVER BOTH HEMISPHERES CONSISTENT WITH A DIFFUSE ENCEPHALOPATHIC PROCESS. 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
== END 2018-08-09 20:59 | disposition expired | DRG 917 ==
LOC: ERS 10:04 → CCU 12:45
PROVIDERS: ADMIT Student in an Organized Health Care Education/Training Program; ATTEND Student in an Organized Health Care Education/Training Program
PROC: 3E033XZ Introduction of Vasopressor into Peripheral Vein, Percutaneous Approach (ICD-10-PCS; principal; 2018-07-31)
PROC: 0BH17EZ Insertion of Endotracheal Airway into Trachea, Via Natural or Artificial Opening (ICD-10-PCS; 2018-07-31)
PROC: 5A1955Z Respiratory Ventilation, Greater than 96 Consecutive Hours (ICD-10-PCS; 2018-07-31)
DX: T63.441A Toxic effect of venom of bees, accidental (unintentional), initial encounter (principal); J96.02 Acute respiratory failure with hypercapnia; J96.01 Acute respiratory failure with hypoxia; J18.0 Bronchopneumonia, unspecified organism; R40.2312 Coma scale, best motor response, none, at arrival to emergency department; R40.2112 Coma scale, eyes open, never, at arrival to emergency department; R40.2212 Coma scale, best verbal response, none, at arrival to emergency department; T78.2XXA Anaphylactic shock, unspecified, initial encounter; G93.1 Anoxic brain damage, not elsewhere classified; E87.2 Acidosis; Z68.41 Body mass index [BMI] 40.0-44.9, adult; E23.2 Diabetes insipidus; J44.0 Chronic obstructive pulmonary disease with (acute) lower respiratory infection; F10.10 Alcohol abuse, uncomplicated; F17.210 Nicotine dependence, cigarettes, uncomplicated; I87.8 Other specified disorders of veins; E66.01 Morbid (severe) obesity due to excess calories; D69.6 Thrombocytopenia, unspecified; M19.90 Unspecified osteoarthritis, unspecified site; G47.30 Sleep apnea, unspecified; Z88.0 Allergy status to penicillin; Z86.73 Personal history of transient ischemic attack (TIA), and cerebral infarction without residual deficits; Z79.01 Long term (current) use of anticoagulants; I46.8 Cardiac arrest due to other underlying condition
CPT/HCPCS: 31500; 36415; 36416; 36556; 51702; 70450; 71045; 80048; 80053; 81003; 81015; 82550; 82553; 82805; 83605; 83735; 83880; 83930; 83935; 84100; 84300; 84484; 84588; 85025; 85027; 85610; 85730; 86850; 86900; 86901; 87040; 93005; 93306; 94002; 94003; 94640; 95816; 95819; 96365; 96366; 96374; 96375; J0171; J0461; J1200; J1650; J1940; J2060; J2270; J2704; J2920; J2930; J3010; J3480; J3490; J7050; J7070; J7620; S0028